=== PATIENT | female | born 1955 | race Caucasian/White ===

== ENCOUNTER 2017-05-27 10:55 | Emergency (ER) | payer OTHER ==
[~2017-05-27] VITALS: Ht 167.6 cm; Wt 131.5 kg
[~2017-05-27 10:55] MED LIST: BUSPAR15 MG PO; CYCLOBENZAPRINE10 MG PO; GLUCOPHAGE XL500 MG PO; LASIX20 MG PO; TIZANIDINE HCL4 M1 PO; ULTRAM50 MG PO; Z.0.ATIVAN1 MG PO; Z.0.CYMBALTA60 MG PO; Z.0.LISINOPRIL10 MG PO; Z.0.NEXIUM40 MG PO; Z.0.OMNICEF300 MG PO; Z.0.PRAVACHOL40 MG PO; [UNRECOGNIZED DRUG - OTHER] PO
[2017-05-27] MEDS ORDERED: ISOSORBIDE MONO30 MG PO (11:13)
[2017-05-27] MEDS ORDERED: PLAVIX75 MG PO (11:13)
[2017-05-27] MEDS ORDERED: HYDROCHLOROTHIA25 MG PO (11:13)
[2017-05-27] MEDS ORDERED: DIOVAN160 MG PO (11:13)
[2017-05-27] MEDS ORDERED: BUSPIRONE HCL5 MG PO (11:13)
[2017-05-27] MEDS ORDERED: CRESTOR10 MG PO (11:13)
[2017-05-27] MEDS ORDERED: METOPROLOL SUCC50 MG PO (11:13)
[2017-05-27] MEDS ORDERED: CYMBALTA30 MG PO (11:13)
[2017-05-27] MEDS ORDERED: ASPIR 8181 MG PO (11:13)
[2017-05-27] MEDS ORDERED: NEXIUM40 MG PO (11:13)
[2017-05-27 11:40] LABS: BASOPHILS % 0.7 % (0.0-1.0); EOSINOPHILS # (AUTO) 0.2 (0.0-0.4); EOSINOPHILS % 2.6 % (0.0-6.0); HEMATOCRIT 37.1 % (34.2-44.1); HEMOGLOBIN 11.9 g/dL (12.0-16.0); LYMPHOCYTES # (AUTO) 1.4 (1.0-3.2); LYMPHOCYTES % 24.9 % (18.0-39.1); MEAN CORPUSCULAR HEMOGLOBIN 28.1 pg (28-32); MEAN CORPUSCULAR HGB CONC 32.1 g/dL (31-35); MEAN CORPUSCULAR VOLUME 87.7 fL (81-99); MONOCYTES # (AUTO) 0.3 (0.2-0.8); MONOCYTES % 5.7 % (4.4-11.3); NEUTROPHILS # (AUTO) 3.8 (2.1-6.9); NEUTROPHILS % 65.8 % (38.7-80.0); PLATELET COUNT 274 x10e3/uL (140-360); RED BLOOD COUNT 4.23 x10e6/uL (3.6-5.1); RED CELL DISTRIBUTION WIDTH 13.6 % (11.7-14.4)
[2017-05-27 11:45] LABS: INR 1.06
[2017-05-27] MEDS ORDERED: ASPIRIN 81 MG CHEW TAB PO ONE (11:45)
[2017-05-27 11:46] LABS: PARTIAL THROMBOPLASTIN TIME 25.1 seconds (23.8-35.5)
[2017-05-27 11:55] LABS: ALANINE AMINOTRANSFERASE 22 IU/L (0-55); ALBUMIN 3.8 g/dL (3.5-5.0); ALBUMIN/GLOBULIN RATIO 1.2 (0.8-2.0); ALKALINE PHOSPHATASE 72 IU/L (40-150); ANION GAP 11.9 mmol/L (8-16); BLOOD UREA NITROGEN 13 mg/dL (7-26); BUN/CREATININE RATIO 18 (6-25); CALCIUM 9.6 mg/dL (8.4-10.2); CARBON DIOXIDE 26 mmol/L (22-29); CHLORIDE 103 mmol/L (98-107); CREATINE KINASE 70 IU/L (29-168); CREATININE, SERUM 0.73 mg/dL (0.57-1.11); EST GLOMERULAR FILTRATION RATE > 60 ML/MIN (60-); GLUCOSE 108 mg/dL (74-118); POTASSIUM 3.9 mmol/L (3.5-5.1); SODIUM 137 mmol/L (136-145)
--- NOTE | 2017-05-27 12:05 | Diagnostic Imaging Report ---
PROCEDURE: A single AP view of the chest obtained at 1151 hrs.. COMPARISON: CT chest 05/31/16 INDICATIONS: CHEST PAIN FINDINGS: Lines/tubes: None. EKG wires overlie the chest. Lungs: The lungs are well inflated and clear. The pulmonary vasculature is normal. Pleura: There is no pleural effusion or pneumothorax. Heart and mediastinum: The heart and the mediastinum are unremarkable. Bones: No focal osseous lesions.. IMPRESSION: No acute cardiopulmonary disease. Dictated by: Brady Hernandez M.D. on 05/27/2017 at 12:15 Electronically approved by: Brady Hernandez M.D. on 05/27/2017 at 12:15
[2017-05-27 13:03] LABS: BILIRUBIN,URINE NEGATIVE (NEGATIVE); CLARITY,URINE CLEAR (CLEAR); COLOR,URINE STRAW (YELLOW); KETONES,URINE NEGATIVE (NEGATIVE); LEUKOCYTE ESTERASE ,URINE NEGATIVE (NEGATIVE); NITRITE,URINE NEGATIVE (NEGATIVE); PROTEIN,URINE DIPSTICK NEGATIVE (NEGATIVE); URINE UROBILINOGEN 0.2 mg/dL (0.2 - 1)
[2017-05-27 13:28] LABS: EPITHELIAL CELLS,URINE FEW /LPF; RBC,URINE 0-5 /HPF (0-5)
[2017-05-27 14:26] VITALS: BP 114/60
== END 2017-05-27 14:47 | disposition home or self-care (01) ==
LOC: ER 10:55
DX: R07.89 Other chest pain (principal); I10 Essential (primary) hypertension; E11.9 Type 2 diabetes mellitus without complications; I25.10 Atherosclerotic heart disease of native coronary artery without angina pectoris; E78.5 Hyperlipidemia, unspecified; Z95.5 Presence of coronary angioplasty implant and graft
CPT/HCPCS: 36415; 71045; 80053; 81001; 82550; 82553; 83880; 84484; 85025; 85610; 85730; 87086; 87400; 93005; 99284

== ENCOUNTER → 2017-08-12 | Outpatient (CLI) | payer OTHER ==
[~2017-08-12] MED LIST changes: +ASPIR 8181 MG PO; +BUSPIRONE HCL5 MG PO; +CRESTOR10 MG PO; +CYMBALTA30 MG PO; +DIOVAN160 MG PO; +HYDROCHLOROTHIA25 MG PO; +ISOSORBIDE MONO30 MG PO; +LORAZEPAM INJ 2 MG/ML VIAL ONE; +METOPROLOL SUCC50 MG PO; +NEXIUM40 MG PO; +PLAVIX75 MG PO
== END ==
LOC: MRI 08:33
PROVIDERS: ATTEND Internal Medicine
DX: M51.36 Other intervertebral disc degeneration, lumbar region (principal)
CPT/HCPCS: J2060

== ENCOUNTER → 2018-02-28 | Outpatient (CLI) | payer OTHER ==
[~2018-02-28] MED LIST changes: +AMLODIPINE BES2.5 MG PO; +ASPIRIN325 MG PO; +BENICAR20 MG PO; +CYCLOBENZAPRINE5 MG PO; +DOXAZOSIN MESYLA2 MG PO; +FUROSEMIDE40 MG PO; +IOPAMIDOL 370 MG/ML 200 ML INFUS..BTL INJ ONE; -LORAZEPAM INJ 2 MG/ML VIAL ONE; +PRISTIQ ER50 MG PO; +SODIUM CHLORIDE 0.9% 50ML 50 ML ONE
[2018-02-28 19:20] LABS: BLOOD UREA NITROGEN 18 mg/dL (7-26); BUN/CREATININE RATIO 23 (6-25); CREATININE, SERUM 0.79 mg/dL (0.57-1.11); EST GLOMERULAR FILTRATION RATE > 60 ML/MIN (60-)
--- NOTE | 2018-02-28 20:13 | Diagnostic Imaging Report ---
EXAM: CT Chest WITH contrast 02/28/2018 6:31 PM INDICATION: Cough. Bronchitis. Pulmonary embolism. Shortness of breath. Hypertension. Chest pain. Diabetes. Kidney stone. COMPARISON: May 31, 2016 TECHNIQUE: Chest was scanned utilizing a multidetector helical scanner from the lung apex through the level of the adrenal glands without administration of IV contrast. Coronal and sagittal reformations were obtained. Pulmonary embolism protocol was performed. IV CONTRAST: 100 mL of Isovue-370 RADIATION DOSE: Total DLP: 639.66 mGy*cm Estimated effective dose: (DLP x 0.014 x size factor) mSv All CT scans are performed using radiation dose reduction techniques. Technical factors are evaluated and adjusted to ensure appropriate moderation of exposure. Automated dose management technology is applied to adjust the radiation dose to minimize exposure while achieving a diagnostic-quality image. COMPLICATIONS: None FINDINGS: LINES/ TUBES: None. LUNGS AND AIRWAYS: No pulmonary embolus identified to the segmental level. Low lung volumes with posterior indentation of the trachea suggesting expiration during the exam. No focal consolidations. Central airways are clear. PLEURA: The pleural spaces are clear. HEART AND MEDIASTINUM: The thyroid gland is normal. No mediastinal, hilar or axillary lymphadenopathy. The heart is normal in size. There is no pericardial effusion. Coronary artery stents. UPPER ABDOMEN: Mild left hydronephrosis versus parapelvic cysts. No asymmetric perinephric stranding. Small hiatal hernia. Otherwise, limited views of the upper abdomen are unremarkable. BONES: No destructive osseous lesions. Retrolisthesis of L1 on L2 with severe disc space narrowing. Additional scattered degenerative changes of the thoracic spine. SOFT TISSUES: Unremarkable. IMPRESSION: 1. No pulmonary emboli or acute thoracic abnormalities. 2. Left renal parapelvic cysts versus mild hydronephrosis. Signed by: Dr. Eamon Mendoza M.D. on 02/28/2018 8:10 PM
== END ==
LOC: CT 18:06
PROVIDERS: ATTEND Internal Medicine
DX: R07.9 Chest pain, unspecified (principal); R06.02 Shortness of breath
CPT/HCPCS: 36415; 71260; 82565; 84520; Q9967

== ENCOUNTER → 2018-04-17 | Day surgery (SDC) | payer BC, OTHER ==
[2018-04-16 16:33] LABS: BASOPHILS % 0.7 % (0.0-1.0); EOSINOPHILS # (AUTO) 0.2 (0.0-0.4); EOSINOPHILS % 2.6 % (0.0-6.0); HEMATOCRIT 34.1 % (34.2-44.1); HEMOGLOBIN 10.8 g/dL (12.0-16.0); LYMPHOCYTES # (AUTO) 1.6 (1.0-3.2); LYMPHOCYTES % 26.7 % (18.0-39.1); MEAN CORPUSCULAR HEMOGLOBIN 28.1 pg (28-32); MEAN CORPUSCULAR HGB CONC 31.7 g/dL (31-35); MEAN CORPUSCULAR VOLUME 88.6 fL (81-99); MONOCYTES # (AUTO) 0.5 (0.2-0.8); MONOCYTES % 7.7 % (4.4-11.3); NEUTROPHILS # (AUTO) 3.8 (2.1-6.9); NEUTROPHILS % 61.8 % (38.7-80.0); PLATELET COUNT 242 x10e3/uL (140-360); RED BLOOD COUNT 3.85 x10e6/uL (3.6-5.1); RED CELL DISTRIBUTION WIDTH 13.9 % (11.7-14.4)
[2018-04-16 16:48] LABS: ALANINE AMINOTRANSFERASE 16 IU/L (0-55); ALBUMIN 3.7 g/dL (3.5-5.0); ALBUMIN/GLOBULIN RATIO 1.2 (0.8-2.0); ALKALINE PHOSPHATASE 90 IU/L (40-150); ANION GAP 14.1 mmol/L (8-16); BLOOD UREA NITROGEN 14 mg/dL (7-26); BUN/CREATININE RATIO 16 (6-25); CALCIUM 9.9 mg/dL (8.4-10.2); CARBON DIOXIDE 27 mmol/L (22-29); CHLORIDE 105 mmol/L (98-107); CREATININE, SERUM 0.89 mg/dL (0.57-1.11); EST GLOMERULAR FILTRATION RATE > 60 ML/MIN (60-); GLUCOSE 83 mg/dL (74-118); POTASSIUM 4.1 mmol/L (3.5-5.1); SODIUM 142 mmol/L (136-145)
[2018-04-17] VITALS (11 sets, daily range): BP systolic 112–143; BP diastolic 55–85
[~2018-04-17] VITALS: Ht 167.6 cm; Wt 131.5 kg
[~2018-04-17] MED LIST changes: +FENTANYL CITRATE/PF 100MCG/2 ML INJ ONE; +FUROSEMIDE INJ 10 MG/ML 4 ML VIAL ONE; +HEPARIN SOD (PORCINE) 1000 UNIT/ML 30ML ONE; +HEPARIN SOD/SOD CHLORIDE 2,000 ML ONE; +LIDOCAINE HCL 1% LOCAL INJ 20 ML VIAL ONE; +MIDAZOLAM HCL 2 MG/2 ML VIAL ONE; +NITROGLYCERIN/D5W 200 MCG/ML 250 ML ONE; +SODIUM CHLORIDE 0.9% 1000ML 1,000 ML ONE; -SODIUM CHLORIDE 0.9% 50ML 50 ML ONE; +VERAPAMIL HCL 2.5 MG/ML 2 ML VIAL ONE
--- OUTSIDE RECORDS SUMMARY | 2018-04-17 06:07 | XMS REPORT ---
Author Author [facility] Address Unknown Phone Unavailable Care Team Providers Care Systems Development Manager Name Role Phone Shante CHAVEZ Unavailable Unavailable Samaria HILARIO Unavailable Unavailable Problems This patient has no known problems. Allergies, Adverse Reactions, Alerts This patient has no known allergies or adverse reactions. Medications This patient has no known medications. Results Test Description Test Time Test Comments Text Results Atomic Results Result Comments CT CHEST W 2018-02-28 19:59:00 [facility] [address] [address] Patient Name: MARISA VALENZUELA MR #: [id number] : 1955 Age/Sex: 63/F Req #: [id number] Adm Physician: Ordered by: DE JONAS MD Report #: [id number] Location: CT Room/Bed: Procedure: [id number] CT/CT CHEST W Exam Date: 02/28/18 Exam Time: 1929 REPORT STATUS: Signed EXAM: CT Chest WITH contrast 02/28/2018 6:31 PM INDICATION: Cough. Bronchitis. Pulmonary embolism. Shortness of breath. Hypertension. Chest pain. Diabetes. Kidney stone. COMPARISON: May 31, 2016 TECHNIQUE: Chest was scanned utilizing a multidetector helical scanner from the lung apex through the level of the adrenal glands without administration of IV contrast. Coronal and sagittal reformations were obtained. Pulmonary embolism protocol was performed. IV CONTRAST: 100 mL of Isovue-370 RADIATION DOSE: Total DLP: 639.66 mGy*cm Estimated effective dose: (DLP x 0.014 x size factor) mSv All CT scans are performed using radiation dose reduction techniques. Technical factors are evaluated and adjusted to ensure appropriate moderation of exposure. Automated dose management technology is applied to adjust the radiation dose to minimize exposure while achieving a diagnostic-quality image. COMPLICATIONS: None FINDINGS: LINES/ TUBES: None. LUNGS AND AIRWAYS: No pulmonary embolus identified to the segmental level. Low lung volumes with posterior indentation of the trachea suggesting expiration during the exam. No focal consolidations. Central airways are clear. PLEURA: The pleural spaces are clear. HEART AND MEDIASTINUM: The thyroid gland is normal. No mediastinal, hilar or axillary lymphadenopathy. The heart is normal in size. There is no pericardial effusion. Coronary artery stents. UPPER ABDOMEN: Mild left hydronephrosis versus parapelvic cysts. No asymmetric perinephric stranding. Small hiatal hernia. Otherwise, limited views of the upper abdomen are unremarkable. BONES: No destructive osseous lesions. Retrolisthesis of L1 on L2 with severe disc space narrowing. Additional scattered degenerative changes of the thoracic spine. SOFT TISSUES: Unremarkable. IMPRESSION: 1. No pulmonary emboli or acute thoracic abnormalities. 2. Left renal parapelvic cysts versus mild hydronephrosis. Signed by: Dr. Eamon Mendoza M.D. on 02/28/2018 8:10 PM Dictated By: EAMON MENDOZA MD, MD 09 Transcribed By: GENA on 02/28/182009 COPY TO: DE JONAS MD CHEST SINGLE (PORTABLE) [address] [address] Patient Name: MARISA VALENZUELA MR #: [id number] : 1955 Age/Sex: 62/F Req #: [id number] Adm Physician: Ordered by: JARAD HILARIO MD Report #: [id number] Location: ER Room/Bed: Procedure: [id number] DX/CHEST SINGLE (PORTABLE) Exam Date: 05/27/17 Exam Time: 1130 REPORT STATUS: Signed PROCEDURE: A single AP view of the chest obtained at 1151 hrs.. COMPARISON: CT chest 05/31/16 INDICATIONS: CHEST PAIN FINDINGS: Lines/tubes: None. EKG wires overlie the chest. Lungs: The lungs are well inflated and clear. The pulmonary vasculature is normal. Pleura: There is no pleural effusion or pneumothorax. Heart and mediastinum: The heart and the mediastinum are unremarkable. Bones: No focal osseous lesions.. IMPRESSION: No acute cardiopulmonary disease. Dictated by: Dipika Hernandez M.D. on 05/27/2017 at 12:15 Electronically approved by: Dipika Hernandez M.D. on 05/27/2017 at 12:15 Dictated By: DIPIKA HERNANDEZ MD 1215 Transcribed By: JANES on 05/27/17 1215 COPY TO: JARAD HILARIO MD
--- NOTE | 2018-04-17 09:25 | NUR ---
Received report from Miguelito CASON. Reviewed medications given, orders, and procedural events. Patient lying flat. Patient awake and alertx3. Respirations even and unlabored on room air. IV to left hand without signs and symptoms of infiltration. TR band to right wrist is without active bleeding at this time. Right IJ dressing is clean,dry and intact. No signs of acute distress at this time.
--- NOTE | 2018-04-17 09:38 | NUR ---
Dr. Ramirez at bedside to discuss procedural findings with and patient.
--- NOTE | 2018-04-17 10:08 | NUR ---
Removed 3ml of air from Right wrist TR band. No active bleeding to right wrist site at this time Palpable right radial pulse. No distress noted at this time.
--- NOTE | 2018-04-17 10:20 | NUR ---
Left message for Dr. Ramirez to call back to notify of urine output results.
--- NOTE | 2018-04-17 10:23 | NUR ---
Removed 3ml of air from right wrist TR band. No active bleeding to right wrist site at this time. Palpable right radial pulse. No distress noted. Patient tolerated well.
--- NOTE | 2018-04-17 10:35 | NUR ---
Dr. Ramirez called back and notified of approximate 750ml urine output. Dr. Ramirez verbalized understanding with no new orders at this time.
--- NOTE | 2018-04-17 10:38 | NUR ---
Removed 3ml of air from right wrist TR band. No active bleeding to right wrist site at this time. No distress noted. will monitor.
--- NOTE | 2018-04-17 10:53 | NUR ---
Removed 3ml of air from TR band. Right wrist without active bleeding at this time. No distress noted. Palpable right radial pulse.
--- NOTE | 2018-04-17 11:09 | NUR ---
Removed 2ml of air from right wrist TR band. Patient tolerated well. No signs of active bleeding to right wrist.
--- NOTE | 2018-04-17 11:12 | NUR ---
Dressing placed to right wrist as per protocol.
--- NOTE | 2018-04-17 11:15 | NUR ---
Reviewed discharge instructions with patient and family. Reviewed home medication reconciliation, activity restrictions, follow-up appointment, diet, signs and symptoms to look for: when to call the doctor and when to call 911. Patient and family verbalized understanding and had no questions at this time.
--- NOTE | 2018-04-17 11:38 | NUR ---
IV to left hand removed. Dressing placed per unit protocol. Patient discharged to private vehicle with as customer service driver. Dressing to right IJ clean,dry, and intact. Dressing to right hand clean,dry, and intact. Arm board placed to right wrist. Dressing to left hand clean,dry, and intact. No distress noted at time of discharge.
--- NOTE | 2018-04-17 15:19 | Operative Report ---
DATE OF PROCEDURE: April 17, 2018 CARDIAC CATHETERIZATION REPORT PROCEDURES 1. Selective coronary angiography x2. 2. Right heart catheterization. INDICATIONS 1. Shortness of breath. 2. Unstable angina. SEDATION 1. Midazolam 6 mg. 2. Fentanyl 150 mcg. INFORMED CONSENT: Consent was obtained and documented in the chart. PROCEDURE IN DETAIL: The patient was brought to the cardiac catheterization laboratory in a fasting state after written informed consent was obtained. Right neck, right wrist and bilateral groins were prepped and draped in the usual sterile fashion. Lidocaine 1% was used to achieve local anesthesia of the right neck. The right internal jugular vein was accessed under ultrasound guidance with a micropuncture needle. A 7-Austrian sheath was placed via modified Seldinger technique. The [place]-Amilcar catheter was inserted and advanced into the pulmonary wedge position. Hemodynamic measurements were performed in the pulmonary capillary wedge, pulmonary arterial, right ventricular, and right atrial positions. Thermodilution measurements were performed. The [place]-Amilcar catheter was removed, and attention was turned to the right radial artery. Next, 1% lidocaine was used to achieve local anesthesia. The right radial artery was accessed with a micropuncture needle. A 5-Austrian Glidesheath was inserted via modified Seldinger technique. A 5-Austrian TIG was inserted and advanced into the ascending aorta. The left main coronary artery was cannulated under fluoroscopic guidance. Selective coronary angiography was performed. The right coronary artery was then cannulated under fluoroscopic guidance. Selective coronary angiography was performed. The TIG was removed, followed by the 5-Austrian sheath. A TR band was placed. The 7-Austrian internal jugular sheath was removed, and manual compression was held until adequate hemostasis was achieved. The patient tolerated the procedure well without any immediate complications. FINDINGS Right heart catheterization 1. RA A wave 13, V wave 12, mean 11 mmHg. 2. RV 49/9, RV EDP 16 mmHg. 3. PA 41/18 mmHg and mean 29 mmHg. 4. Pulmonary capillary wedge A wave 18, V wave 18, mean 17 mmHg. 5. Thermodilution cardiac output 7.53 liters per minute. Thermodilution cardiac index 3.21 liters per minute per meter squared. Left heart catheterization 1. The left main coronary artery bifurcates into the left anterior descending and circumflex arteries. There was 50% stenosis in the proximal LAD prior to the takeoff of the 1st diagonal. The LAD wraps around the apex. 2. Patent stent was noted in the circumflex artery. No significant coronary artery disease was noted. 3. The right coronary artery gives rise to the PDA. There is 20% to 30% stenosis prior to the patent stent in the distal RCA. CONCLUSIONS 1. Mild pulmonary hypertension. 2. Elevated filling pressures. 3. Nonobstructive coronary artery disease. RECOMMENDATIONS: Medical management. Increase diuretics. Aggressive risk-factor modification. Job#: [id number] MTDD
== END | disposition home or self-care (01) ==
LOC: CATH LAB 06:04
PROVIDERS: ATTEND Internal Medicine
DX: I25.110 Atherosclerotic heart disease of native coronary artery with unstable angina pectoris (principal); I27.20 Pulmonary hypertension, unspecified; I10 Essential (primary) hypertension; R94.31 Abnormal electrocardiogram [ECG] [EKG]; I73.9 Peripheral vascular disease, unspecified; E78.5 Hyperlipidemia, unspecified; E11.9 Type 2 diabetes mellitus without complications; E66.01 Morbid (severe) obesity due to excess calories; Z01.812 Encounter for preprocedural laboratory examination; Z79.82 Long term (current) use of aspirin; Z79.02 Long term (current) use of antithrombotics/antiplatelets; Z79.84 Long term (current) use of oral hypoglycemic drugs; Z68.43 Body mass index [BMI] 50.0-59.9, adult; Z82.49 Family history of ischemic heart disease and other diseases of the circulatory system; Z83.3 Family history of diabetes mellitus; Z82.3 Family history of stroke
CPT/HCPCS: 36415; 80053; 85025; 93456; C1766; C1769; C1887; J1644; J1940; J2001; J2250; J7030; Q9967; 93460

== ENCOUNTER → 2018-05-29 | Outpatient (CLI) | payer BC, OTHER ==
[~2018-05-29] MED LIST changes: -FENTANYL CITRATE/PF 100MCG/2 ML INJ ONE; -FUROSEMIDE INJ 10 MG/ML 4 ML VIAL ONE; -HEPARIN SOD (PORCINE) 1000 UNIT/ML 30ML ONE; -HEPARIN SOD/SOD CHLORIDE 2,000 ML ONE; -IOPAMIDOL 370 MG/ML 200 ML INFUS..BTL INJ ONE; -LIDOCAINE HCL 1% LOCAL INJ 20 ML VIAL ONE; -MIDAZOLAM HCL 2 MG/2 ML VIAL ONE; -NITROGLYCERIN/D5W 200 MCG/ML 250 ML ONE; -SODIUM CHLORIDE 0.9% 1000ML 1,000 ML ONE; -VERAPAMIL HCL 2.5 MG/ML 2 ML VIAL ONE
--- NOTE | 2018-05-29 16:05 | Diagnostic Imaging Report ---
Examination: Single AP view of the chest. COMPARISON: CT chest PE protocol 02/28/2018 INDICATION: Dyspnea DISCUSSION: The lungs are well-inflated. No focal airspace consolidation, pleural effusion, or pneumothorax. Enlargement of the cardiac silhouette shown to represent prominent epicardial fat on comparison CT. Tortuous thoracic aorta with atherosclerotic calcification. No overt pulmonary edema. No acute osseous abnormality. IMPRESSION: No acute cardiopulmonary abnormality. Signed by: Dr. Wade Garcia M.D. on 05/29/2018 4:02 PM
== END ==
LOC: RAD 14:57
PROVIDERS: ATTEND Internal Medicine
DX: R06.00 Dyspnea, unspecified (principal)
CPT/HCPCS: 71046

== ENCOUNTER → 2018-06-19 | Outpatient (CLI) | payer BC, OTHER ==
[~2018-06-19] MED LIST changes: +IOPAMIDOL 370 MG/ML 200 ML INFUS..BTL INJ ONE; +SODIUM CHLORIDE 0.9% 50ML 50 ML ONE
[2018-06-19 19:05] LABS: BLOOD UREA NITROGEN 17 mg/dL (7-26); BUN/CREATININE RATIO 19 (6-25); EST GLOMERULAR FILTRATION RATE > 60 ML/MIN (60-)
--- NOTE | 2018-06-19 20:02 | Diagnostic Imaging Report ---
CT CHEST WITH CONTRAST HISTORY: SHORT OF BREATH COMPARISON: CT of the chest February 28, 2018. TECHNIQUE: CT scan of the chest WITH intravenous contrast, using PE protocol. The chest was scanned utilizing a multidetector helical scanner from the lung apex through the level of the adrenal glands. Thin section reconstructions were obtained with special concentration on the pulmonary arteries. Soft tissue attenuation partially limits sensitivity of the exam. Dense contrast within the right brachiocephalic vein and superior vena cava, results in beam hardening artifact which partially limits regional evaluation. IV CONTRAST: 100 cc of Isovue-370. PROTOCOL: PE RADIATION DOSE: Total DLP: 628.26 mGy*cm Dose modulation, iterative reconstruction, and/or weight based adjustment of the mA/kV was utilized to reduce the radiation dose to as low as reasonably achievable. COMPLICATIONS: None DISCUSSION: Lungs: The lungs are well inflated and clear. Vessels: No filling defects are identified within the pulmonary arteries to the segmental levels. Mild enlargement of the main pulmonary artery, 3.6 cm in diameter. Mild enlargement of the right pulmonary artery and borderline enlargement left pulmonary artery. Airways: The major airways are clear. Pleura: No pleural effusion or pneumothorax. Heart and mediastinum: Unremarkable Abdomen: Limited evaluation of the upper abdomen. Lymph nodes: No pathologically enlarged lymph node. Bones: Multifocal degenerative changes, most notably severe of the left glenohumeral joint. Soft tissues: Unremarkable IMPRESSION: 1. No evidence of a pulmonary embolus. 2. Increased size of the pulmonary arteries, which may reflect elevated pulmonary arterial pressures. Signed by: Dr. Gregor Steiner D.O., M.M.M. on 06/19/2018 7:58 PM
== END ==
LOC: CT 18:16
PROVIDERS: ATTEND Internal Medicine
DX: R06.02 Shortness of breath (principal)
CPT/HCPCS: 36415; 71260; 82565; 84520; Q9967

== ENCOUNTER 2018-10-20 18:36 | Observation (INO) | payer BC, OTHER ==
[~2018-10-20] VITALS: Ht 167.6 cm; Wt 139.3 kg
[~2018-10-20 18:36] MED LIST changes: -IOPAMIDOL 370 MG/ML 200 ML INFUS..BTL INJ ONE; -SODIUM CHLORIDE 0.9% 50ML 50 ML ONE
[2018-10-20] MEDS ORDERED: ASPIRIN 81 MG CHEW TAB PO ONE (19:15)
[2018-10-20 19:28] LABS: BASOPHILS # (AUTO) 0.1 (0.0-0.1); BASOPHILS % 0.5 % (0.0-1.0); EOSINOPHILS # (AUTO) 0.3 (0.0-0.4); EOSINOPHILS % 2.9 % (0.0-6.0); HEMATOCRIT 33.5 % (34.2-44.1); HEMOGLOBIN 11.2 g/dL (12.0-16.0); LYMPHOCYTES # (AUTO) 1.6 (1.0-3.2); LYMPHOCYTES % 17.1 % (18.0-39.1); MEAN CORPUSCULAR HEMOGLOBIN 30.4 pg (28-32); MEAN CORPUSCULAR HGB CONC 33.4 g/dL (31-35); MEAN CORPUSCULAR VOLUME 90.8 fL (81-99); MONOCYTES # (AUTO) 0.6 (0.2-0.8); MONOCYTES % 6.1 % (4.4-11.3); NEUTROPHILS % 72.8 % (38.7-80.0); PLATELET COUNT 324 x10e3/uL (140-360); RED BLOOD COUNT 3.69 x10e6/uL (3.6-5.1); RED CELL DISTRIBUTION WIDTH 13.2 % (11.7-14.4)
--- NOTE | 2018-10-20 19:39 | Diagnostic Imaging Report ---
EXAMINATION: CHEST SINGLE (PORTABLE) INDICATION: ^chest pain COMPARISON: Chest x-ray 05/27/2017 FINDINGS: AP view TUBES and LINES: None. LUNGS: Lungs are well inflated. There are bibasilar atelectasis. There is mild prominence of the central pulmonary vasculature, consistent with pulmonary venous congestion. PLEURA: No pleural effusion or pneumothorax. HEART AND MEDIASTINUM: The cardiomediastinal silhouette is unremarkable. There are atherosclerotic calcifications within the aorta. BONES AND SOFT TISSUES: No acute osseous lesion. Degenerative changes in the left shoulder. Soft tissues are unremarkable. UPPER ABDOMEN: No free air under the diaphragm. IMPRESSION: Mild central pulmonary venous congestion. Signed by: Dr. Avery Aguirre M.D. on 10/20/2018 7:36 PM
[2018-10-20] MEDS ORDERED: ACETAMINOPHEN 325 MG TAB PO ONE (19:45)
[2018-10-20 19:49] LABS: ALANINE AMINOTRANSFERASE 21 IU/L (0-55); ALBUMIN 4.1 g/dL (3.5-5.0); ALBUMIN/GLOBULIN RATIO 1.3 (0.8-2.0); ALKALINE PHOSPHATASE 84 IU/L (40-150); ANION GAP 15.9 mmol/L (8-16); BLOOD UREA NITROGEN 51 mg/dL (7-26); BUN/CREATININE RATIO 21 (6-25); CALCIUM 10.2 mg/dL (8.4-10.2); CARBON DIOXIDE 28 mmol/L (22-29); CHLORIDE 96 mmol/L (98-107); CREATINE KINASE 58 IU/L (29-168); CREATININE, SERUM 2.44 mg/dL (0.57-1.11); EST GLOMERULAR FILTRATION RATE 20 ML/MIN (60-); GLUCOSE 142 mg/dL (74-118); POTASSIUM 4.9 mmol/L (3.5-5.1); SODIUM 135 mmol/L (136-145)
[2018-10-20] MEDS ORDERED: RANEXA500 MG PO (20:36)
[2018-10-20] MEDS ORDERED: SPIRONOLACTONE25 MG PO (20:36)
[2018-10-20] MEDS ORDERED: LEVOCETIRIZINE D5 MG PO (20:36)
[2018-10-20] MEDS ORDERED: LORAZEPAM1 MG PO (20:36)
[2018-10-20] MEDS ORDERED: BUMETANIDE1 MG PO (20:37)
[2018-10-20] MEDS ORDERED: ASPIRIN EC81 MG PO (20:38)
[2018-10-20] MEDS ORDERED: CYMBALTA30 MG PO (20:38)
[2018-10-20] MEDS ORDERED: SODIUM CHLORIDE 0.9% 1000ML 1,000 ML ONE (21:28)
[2018-10-20] MEDS ORDERED: SODIUM CHLORIDE 0.9% 1000ML 1,000 ML IV ONE (21:30)
[2018-10-20] MEDS ORDERED: DEXTROSE 50% SYRINGE 50 ML IV PRN (21:30)
[2018-10-20] MEDS ORDERED: ONDANSETRON HCL INJ 2MG/ML 2ML 2 MG/ML VIAL IV PRN (21:30)
[2018-10-20] MEDS ORDERED: TRAMADOL HCL 50 MG TAB PO PRN (21:30)
[2018-10-20] MEDS ORDERED: LORAZEPAM 1 MG TAB PO PRN (21:30)
[2018-10-20] MEDS ORDERED: NON-FORMULARY MEDICATION (Cyclobenzaprine Hcl (Flexeril) 10 MG) PO PRN (21:30)
[2018-10-20] MEDS ORDERED: CYCLOBENZAPRINE HCL 10 MG TAB PO PRN (22:00)
[2018-10-20 22:25] VITALS: BP 103/51
--- NOTE | 2018-10-20 22:25 | NUR ---
TELE BOX #[id number] ATTACHED TO PATIENT
[2018-10-20 22:30] VITALS: BP 101/54
[2018-10-21] VITALS (10 sets, daily range): BP systolic 83–125; BP diastolic 47–63
[2018-10-21 03:52] LABS: BASOPHILS % 0.5 % (0.0-1.0); EOSINOPHILS # (AUTO) 0.3 (0.0-0.4); EOSINOPHILS % 3.9 % (0.0-6.0); HEMATOCRIT 30.6 % (34.2-44.1); HEMOGLOBIN 10.2 g/dL (12.0-16.0); LYMPHOCYTES # (AUTO) 2.2 (1.0-3.2); LYMPHOCYTES % 28.8 % (18.0-39.1); MEAN CORPUSCULAR HEMOGLOBIN 30.4 pg (28-32); MEAN CORPUSCULAR HGB CONC 33.3 g/dL (31-35); MEAN CORPUSCULAR VOLUME 91.1 fL (81-99); MONOCYTES # (AUTO) 0.5 (0.2-0.8); MONOCYTES % 6.3 % (4.4-11.3); NEUTROPHILS # (AUTO) 4.6 (2.1-6.9); NEUTROPHILS % 59.9 % (38.7-80.0); PLATELET COUNT 287 x10e3/uL (140-360); RED BLOOD COUNT 3.36 x10e6/uL (3.6-5.1); RED CELL DISTRIBUTION WIDTH 13.2 % (11.7-14.4)
[2018-10-21 04:12] LABS: ALBUMIN 3.6 g/dL (3.5-5.0); ALBUMIN/GLOBULIN RATIO 1.2 (0.8-2.0); ANION GAP 14.8 mmol/L (8-16); CALCIUM 9.7 mg/dL (8.4-10.2); CHOL/HDL RATIO 3.6 (3.0-3.6); CREATININE, SERUM 2.36 mg/dL (0.57-1.11); POTASSIUM 4.8 mmol/L (3.5-5.1)
[2018-10-21 04:17] LABS: CREATINE KINASE 53 IU/L (29-168)
--- NOTE | 2018-10-21 07:05 | NUR ---
RECEIVED PATIENT AWAKE RESTING IN BED NO SIGNS OF DISTRESS. BED LOW, WHEELS LOCKED, SIDE RAILS X2. CALL LIGHT IN REACH. WILL CONTINUE TO MONITOR PATIENT. FAMILY AT BEDSIDE.
[2018-10-21] MEDS: INSULIN REGULAR, HUMAN 100 UNIT/1 ML 3ML VIAL SQ SCH ×4 (07:30→21:00)
[2018-10-21] MEDS: METOPROLOL SUCCINATE 50 MG TAB XL PO SCH (08:10)
[2018-10-21] MEDS: BUMETANIDE 1 MG TAB PO SCH ×2 (08:12→15:47)
[2018-10-21] MEDS: PANTOPRAZOLE SOD 40 MG TABEC PO SCH (08:33)
[2018-10-21] MEDS: ASPIRIN 81 MG ENTERIC COATED PO SCH (08:33)
[2018-10-21] MEDS: DULOXETINE HCL 30 MG DELAYED RELEASE PO SCH (08:33)
[2018-10-21] MEDS: LORATADINE 10 MG TAB PO SCH (08:33)
[2018-10-21] MEDS: CLOPIDOGREL BISULFATE 75 MG TAB PO SCH (08:33)
[2018-10-21] MEDS: BUSPIRONE HCL 5 MG TAB PO SCH ×3 (08:33→21:27)
[2018-10-21] MEDS: RANOLAZINE 500 MG TABSR PO SCH (08:34)
[2018-10-21] MEDS ORDERED: NON-FORMULARY MEDICATION (Levocetirizine Dihydrochloride 5 MG) PO SCH (09:00)
[2018-10-21] MEDS ORDERED: LORAZEPAM 1 MG TAB PO SCH (09:00)
[2018-10-21] MEDS ORDERED: SPIRONOLACTONE 25 MG TAB PO SCH (09:00)
[2018-10-21] MEDS ORDERED: OLMESARTAN 20 MG TAB PO SCH (09:00)
[2018-10-21] MEDS: SODIUM CHLORIDE 0.9% 1000ML 1,000 ML IV SCH (09:46)
--- NOTE | 2018-10-21 10:35 | History and Physical ---
CHIEF COMPLAINT: Chest pain. HISTORY OF PRESENT ILLNESS: This is a 63-year-old white woman, who presents to [facility] Emergency Room with a 1-day history of worsening chest discomfort and lightheadedness, particularly when she stands up. The patient states for the past two weeks, she has not felt well. The patient states that her orthopnea and dyspnea on exertion has only become more pronounced over the last two weeks. She denies any weight gain though. In July 2018, the patient underwent an echocardiogram, which revealed a preserved left ventricular ejection fraction, but it did reveal findings consistent with worsening diastolic heart failure. Also, on this admission, the patient is found to have BUN and creatinine of 51 and 2.44 respectively. On October 10, 2018, the patient's creatinine was 1.96. Apparently in June of 2018, the patient was found to have a BUN and creatinine of 17 and 0.9 respectively. The patient is on Bumex, spironolactone, Olmesartan, and metformin at home. In the emergency room, the patient underwent a chest x-ray, which revealed a mild central pulmonary venous congestion, but no overt heart failure was appreciated. No obvious cardiomegaly was appreciated either. The patient had a 12-lead EKG done in emergency room, which was unremarkable, it did not reveal any acute ischemic changes. The patient's first two troponin I enzymes are less than 0.001. In the emergency room, the patient's B-type natriuretic peptide level was less than 10. The patient will be admitted for further evaluation and treatment. REVIEW OF SYSTEMS: GENERAL: Weight has been stable, but she has felt very weak and tired over the last two weeks. No fever or chills. HEENT: No headaches. No vision changes. CARDIOVASCULAR/RESPIRATORY: Chest pain for one day, worsening shortness of breath, particularly with exertion over the last two weeks, worsening orthopnea over the last two weeks. GI: No nausea, vomiting, or constipation. : No UTI or overactive bladder symptoms. NEUROMUSCULAR: No limb weakness or numbness. PAST MEDICAL HISTORY: 1. Coronary artery disease (RCA and OM stent placement in March 2016). 2. Chronic diastolic congestive heart failure. 3. Extreme obesity, BMI 49. 4. Obstructive sleep apnea. 5. Chronic bronchitis. 6. History of secondhand tobacco exposure. 7. Type 2 diabetes mellitus. 8. Hypertensive heart disease. 9. Major depressive disorder. 10. Chronic pain syndrome. 11. Lumbar disk disease. 12. Cervical disk disease. 13. GERD. 14. Bilateral knee degenerative joint disease. 15. Hyperlipidemia. ALLERGIES: LEVAQUIN (CAUSES A RASH). FLU VACCINE. FAMILY HISTORY: Grandmother; diabetes mellitus. Both parents had coronary artery disease. SOCIAL HISTORY: This woman is , lives with . The patient has no history of tobacco use, but was exposed to secondhand tobacco smoke for many years. Drinks alcohol rarely in the form of red wine. PAST SURGICAL HISTORY: 1. Coronary stent placement in OM and RCA in March 2016. 2. Lumbar epidural steroid injections multiple times. 3. Cervical spine epidural steroid injections multiple times. 4. Lumbar spine surgery in 1999. 5. History of left heart catheterization on multiple occasions. HOME MEDICATIONS: 1. Aspirin 81 mg daily. 2. Bumex 2 mg b.i.d. 3. BuSpar 15 mg t.i.d. 4. Clopidogrel 75 mg daily. 5. Flexeril 10 mg t.i.d. p.r.n. spasms. 6. Duloxetine 60 mg daily. 7. Nexium 40 mg daily. 8. Xyzal 5 mg daily. 9. Lorazepam 1 mg b.i.d. p.r.n. anxiety. 10. Metformin 500 mg b.i.d. 11. Metoprolol succinate 200 mg daily. 12. Olmesartan 40 mg daily. 13. Ranexa 500 mg daily. 14. Rosuvastatin 40 mg daily. 15. Spironolactone 25 mg daily. 16. Tramadol 25 mg every 4 hours p.r.n. pain. PHYSICAL EXAMINATION: GENERAL: She is awake, alert, fluent. She is mildly anxious, slightly emotional. Her is at bedside. VITAL SIGNS: Height 5 feet 6 inches, weight is 307 pounds, BMI is 49, blood pressure currently is 125/56, but apparently in emergency room it got as low as 83/51, pulse currently is 62, respiratory rate is 18, temperature 96.3, oxygen saturation is 98% on 2 L oxygen. INTEGUMENT: Skin is warm and dry. No pallor, jaundice, or diaphoresis. HEENT: Anicteric sclerae. Moist mucous membranes. NECK: Supple. Difficult to assess for jugular venous distention because of the patient's body habitus. CARDIOVASCULAR: Distant heart sounds. Regular rate and rhythm. Faint systolic ejection murmur. LUNGS: There are no rales, rhonchi, or wheezes. Seems to have diminished breath sounds at the bases though. ABDOMEN: Extremely obese. Difficult to assess for any masses or organomegaly because of body habitus. EXTREMITIES: No obvious edema in the lower legs. NEUROLOGIC: Intact. No focal deficits. DIAGNOSES: 1. Acute on chronic diastolic congestive heart failure. 2. Acute renal insufficiency, likely prerenal acute tubular necrosis. 3. Angina. 4. Coronary artery disease (coronary stent placement, RCA and OM in 2016). 5. Extreme obesity, BMI of 49. 6. Obstructive sleep apnea. PLAN: 1. Hold diuretics, namely Bumex and spironolactone as well as angiotensin receptor blockers, namely olmesartan and metformin due to the patient's acute renal insufficiency. 2. Gentle intravenous fluids. 3. Order renal ultrasound. 4. Consult Cardiology. 5. I agree with ruling out myocardial infarction. I spent 50 minutes in the care of this patient. MD SOLITARIO Lui/ALETHA /[id number] MTDAnais
--- NOTE | 2018-10-21 11:00 | NUR ---
SPOKE WITH MD PATEL. SAID TO NOT GIVE OLMESARTAN, BUMEX, AND ALDACTONE.
[2018-10-21 12:53] LABS: CREATINE KINASE 50 IU/L (29-168)
--- NOTE | 2018-10-21 14:28 | Consultation ---
DATE OF CONSULTATION: 10/21/2018 Cardiology Consultation REQUESTING PHYSICIAN: Dr. Ammon Carranza. REASON FOR CONSULTATION: Chest pain. HISTORY OF PRESENT ILLNESS: This is a 63-year-old woman, who has history of coronary artery disease status post OM and RCA PCI in 2016, hypertension, hyperlipidemia, diabetes mellitus, morbid obesity, obstructive sleep apnea on CPAP, and hypertensive heart disease, who presented with complaints of chest pain and lightheadedness. The patient reports that she has been coughing for the last month. Approximately two weeks prior to admission, she began noticing lightheadedness when she stood as well as when she first lied down. Her indicates she has been more lethargic than her baseline and has not been eating well for the last two weeks. In addition, the patient reports her usual chest pain has recurred during this period of time. She was seen by one of my partners in the office one week prior and her amlodipine was discontinued. She stated this improved her symptoms, but then she felt worse yesterday and therefore she presented to the ER for further evaluation. She does report orthopnea and PND, but these are unchanged from prior. REVIEW OF SYSTEMS: Negative except as per HPI. PAST MEDICAL HISTORY: 1. Coronary artery disease status post RCA and OM PCI. 2. Diabetes mellitus. 3. Hypertension. 4. Hyperlipidemia. 5. Chronic diastolic heart failure. 6. Morbid obesity. PAST SURGICAL HISTORY: 1. Lumbar epidural steroid injections. 2. Cervical spine epidural steroid injections. 3. Lumbar spine surgery. ALLERGIES: PLEASE SEE EMR. MEDICATIONS: Please see medication list. SOCIAL HISTORY: No tobacco. Rare alcohol. FAMILY HISTORY: Pertinent for parents with coronary artery disease. PHYSICAL EXAMINATION: VITAL SIGNS: Temperature 96.3 degrees, pulse 60, respiratory rate 18, blood pressure 125/56, and oxygen saturation 98% on 3 L nasal cannula. GENERAL: Obese woman, in no acute distress, well developed, well nourished. HEENT: Normocephalic, atraumatic. Pupils equal. No scleral icterus. NECK: Supple. No thyromegaly or cervical lymphadenopathy. No carotid bruits. LUNGS: Clear to auscultation bilaterally. No wheeze or crackles. CARDIOVASCULAR: Normal rate, regular rhythm. No murmur. Normal S1, S2. ABDOMEN: Soft, nontender. EXTREMITIES: No edema. NEUROLOGIC: Nonfocal exam. LABORATORY DATA: WBC 7.74, hemoglobin 10.2, hematocrit 30.6, platelets 287. Sodium 135, potassium 4.8, chloride 96, CO2 of 29, BUN 52, and creatinine 2.36. Troponin less than 0.01. BNP less than 10. LDL 76. IMAGING DATA: Chest x-ray, mild central pulmonary venous congestion. EKG; normal sinus rhythm, normal ECG. IMPRESSION: 1. Acute kidney injury. 2. Chest pain. 3. Chronic diastolic heart failure. 4. Coronary artery disease with history of RCA and OM PCI in 2016. 5. Morbid obesity. 6. Obstructive sleep apnea. 7. Hypertension. 8. Hyperlipidemia. 9. Diabetes mellitus. RECOMMENDATIONS: Agree with holding diuretics, ARB and metformin at this time. Gentle IV fluids. Monitor respiratory status closely. The patient is ruled out for myocardial infarction. No further cardiac evaluation is indicated at this time. Continue home cardiac medications including aspirin and Plavix. Continue metoprolol and ranolazine. Plan to refer the patient for cardiac rehab as an outpatient. Titrate antianginal therapies as blood pressure permits. Thank you for this consult. We will continue to follow. Mitzy Ramirez MD ABS/MODL /[id number]
--- NOTE | 2018-10-21 15:10 | NUR ---
Visit made by the Spiritual Care Department Pastoral Visitor, Iliana Willams. PV provided pastoral presence, prayer, hospitality, and supportive listening. Pastoral Visitor informed pt/family of the scope of [employer] Services and availability. VITO LANGE Casing Soaker Spiritual Care Department O: [phone] Pager: [phone] ([phone] number calling from)
--- NOTE | 2018-10-21 15:23 | Diagnostic Imaging Report ---
EXAM: Renal Ultrasound INDICATION: ^acute renal insufficiency ^Y COMPARISON: None TECHNIQUE: Transverse and longitudinal images of the kidneys and bladder were obtained. FINDINGS: Right Kidney: Length: 9.4 cm Appearance: Normal echogenicity. Collecting system: No hydronephrosis Stones: No renal calculi. Cyst/Mass: None Left Kidney: Length: 11.6 cm Appearance: Normal echogenicity. Collecting system: No hydronephrosis Stones: Nonspecific echogenic focus in the lateral midpole left kidney measuring 0.3 x 0.3 x 0.7 cm without posterior acoustic shadowing. Cyst/Mass: None Bladder: No wall thickening or mass. Ureteral jets not visualized. IMPRESSION: Echogenic focus in the lateral midpole left kidney measures 0.3 x 0.3 x 0.7 cm without posterior acoustic shadowing and is nonspecific but could possibly represent a nonobstructive calculus. No hydronephrosis. Normal-appearing bladder. Signed by: Hay Gonzalez MD on 10/21/2018 3:19 PM
--- NOTE | 2018-10-21 15:26 | NUR ---
DISCUSSED IN BARRIER ROUNDS, 2 CARD MARKERS WERE NEGATIVE, GETTING RENAL ULTRASOUND TODAY
[2018-10-21] MEDS: LORAZEPAM 1 MG TAB PO SCH (17:13)
[2018-10-21] MEDS: SIMVASTATIN 40 MG TAB PO SCH (21:27)
[2018-10-22] VITALS (8 sets, daily range): BP systolic 103–152; BP diastolic 47–63
[2018-10-22] MEDS: SODIUM CHLORIDE 0.9% 1000ML 1,000 ML IV SCH ×2 (05:26→19:37)
[2018-10-22 06:08] LABS: BASOPHILS % 0.4 % (0.0-1.0); EOSINOPHILS # (AUTO) 0.3 (0.0-0.4); EOSINOPHILS % 4.8 % (0.0-6.0); HEMATOCRIT 30.1 % (34.2-44.1); LYMPHOCYTES # (AUTO) 1.8 (1.0-3.2); MEAN CORPUSCULAR HGB CONC 33.2 g/dL (31-35); MEAN CORPUSCULAR VOLUME 93.2 fL (81-99); MONOCYTES # (AUTO) 0.5 (0.2-0.8); MONOCYTES % 7.3 % (4.4-11.3); NEUTROPHILS # (AUTO) 4.1 (2.1-6.9); NEUTROPHILS % 60.8 % (38.7-80.0); PLATELET COUNT 242 x10e3/uL (140-360); RED BLOOD COUNT 3.23 x10e6/uL (3.6-5.1); RED CELL DISTRIBUTION WIDTH 13.2 % (11.7-14.4)
[2018-10-22 06:36] LABS: ALBUMIN 3.6 g/dL (3.5-5.0); ALBUMIN/GLOBULIN RATIO 1.3 (0.8-2.0); ANION GAP 11.2 mmol/L (8-16); CALCIUM 9.9 mg/dL (8.4-10.2); CREATININE, SERUM 1.63 mg/dL (0.57-1.11); POTASSIUM 5.2 mmol/L (3.5-5.1)
[2018-10-22] MEDS: INSULIN REGULAR, HUMAN 100 UNIT/1 ML 3ML VIAL SQ SCH ×4 (07:30→19:46)
[2018-10-22] MEDS: CLOPIDOGREL BISULFATE 75 MG TAB PO SCH (09:59)
[2018-10-22] MEDS: DULOXETINE HCL 30 MG DELAYED RELEASE PO SCH (09:59)
[2018-10-22] MEDS: BUSPIRONE HCL 5 MG TAB PO SCH ×3 (09:59→21:01)
[2018-10-22] MEDS: ASPIRIN 81 MG ENTERIC COATED PO SCH (09:59)
[2018-10-22] MEDS: RANOLAZINE 500 MG TABSR PO SCH (09:59)
[2018-10-22] MEDS: PANTOPRAZOLE SOD 40 MG TABEC PO SCH (09:59)
[2018-10-22] MEDS: LORATADINE 10 MG TAB PO SCH (09:59)
[2018-10-22] MEDS: LORAZEPAM 1 MG TAB PO SCH ×2 (09:59→16:14)
[2018-10-22] MEDS: METOPROLOL SUCCINATE 50 MG TAB XL PO SCH (10:00)
--- NOTE | 2018-10-22 19:30 | NUR ---
Received bedside report from day shift RN. The patient is sitting on the edge of the bed, not in distress. Call light within reach, bed height low, wheels lock and side rails up x2. RN instructed the patient to urinate in the blue cup and call for specimen pickup. Verbalized understanding. Patient is eager to go home tomorrow once lab is obtained for clearance. at bedside.
--- NOTE | 2018-10-22 20:20 | Progress Note ---
DATE: 10/22/2018 Cardiology Progress Note SUBJECTIVE: The patient denies chest pain or shortness of breath. PHYSICAL EXAMINATION: VITAL SIGNS: Temperature 96.1 degrees, pulse 63, respiratory rate 19, blood pressure 124/55, oxygen saturation 100% on 3 L nasal cannula. GENERAL: Awake, alert, no acute distress. LUNGS: Clear to auscultation bilaterally. No wheezes or crackles. CARDIOVASCULAR: Normal rate, regular rhythm. No murmur. Normal S1, S2. ABDOMEN: Soft, nontender. EXTREMITIES: No edema. CARDIAC MEDICATIONS: Metoprolol succinate 200 mg p.o. daily, ranolazine 500 mg p.o. daily, Plavix 75 mg p.o. daily, aspirin 81 mg p.o. daily, simvastatin 40 mg p.o. at bedtime. LABORATORY DATA: WBC 6.82, hemoglobin 10, hematocrit 30.1, platelets 242. Sodium 140, potassium 5.2, chloride 106, CO2 of 28, BUN 34, creatinine 1.63. TELEMETRY: Normal sinus rhythm. IMPRESSION: 1. Acute kidney injury. 2. Chronic diastolic heart failure. 3. Chest pain. 4. Coronary artery disease with history of RCA and OM PCI in 2016. 5. Morbid obesity. 6. Obstructive sleep apnea. 7. Hypertension. 8. Hyperlipidemia. 9. Diabetes mellitus. RECOMMENDATIONS: Hold diuretics, ARB and metformin at this time. Continue IV fluids. Monitor volume status closely. Continue current cardiac medications including dual anti-platelet therapy. Continue metoprolol and ranolazine. The patient will need referral to cardiac rehab as an outpatient. We will attempt to further titrate ranolazine if blood pressure permits. Thank you for this consult. We will continue to follow. Mitzy Ramirez MD ABS/MODL /[id number]
[2018-10-22] MEDS: SIMVASTATIN 40 MG TAB PO SCH (21:00)
--- NOTE | 2018-10-22 23:41 | Consultation ---
DATE OF CONSULTATION: 10/22/2018 Renal Consult REASON FOR CONSULT: Increased BUN and creatinine. HISTORY OF PRESENT ILLNESS: This 63-year-old female, who came in after not feeling well for the last week. The patient has been very weak, unable to move, unable to get out of the bed and unable to move in her house. She started having orthopnea and dyspnea upon exertion, which was pronounced two weeks ago. She was given more diuretics, so she has been on spironolactone, olmesartan, and Bumex, but the patient became much weaker and was found to have increased creatinine. The patient also was getting metformin. PAST MEDICAL HISTORY: 1. Include coronary artery disease, RCA, and OM stent placement. 2. Morbid obesity. 3. Chronic diastolic congestive heart failure. 4. Obstructive sleep apnea. 5. Chronic bronchitis. 6. Lumbar and cervical disk disease. 7. Major depression. 8. Hypertension as well as type 2 diabetes mellitus. 9. Bilateral DJD. 10. Hyperlipidemia. ALLERGIES: LEVAQUIN AND FLU VACCINE. FAMILY HISTORY: Mother with diabetes; both parents with CAD. SOCIAL HISTORY: with her . No smoking. No alcohol. PAST SURGICAL HISTORY: Include: 1. Left heart catheterization. 2. Lumbar spine surgery. 3. Cervical spine epidural and lumbar epidural steroid injection. 4. Coronary artery stent placement. HOME MEDICATIONS: Reviewed. REVIEW OF SYSTEMS: Currently feeling little bit better, much more improved as far as movement. She is starting to move in the room, but she is not short of breath. She remains weak. She denies any nausea, vomiting, constipation, or diarrhea. Denies any shortness of breath. Denies any blood in the stool or blood in the urine. Denies any sensory loss or motor loss. Denies any edema. Denies any depression. Denies any skin changes. Denies any visual impairment, so all pertinent review of system are reviewed, currently negative. CURRENT MEDICATIONS: Include metoprolol, lorazepam, Claritin, Ranexa, Protonix, Cymbalta, Plavix, BuSpar, aspirin, simvastatin, insulin, Flexeril, and tramadol. LABORATORY DATA: Sodium 140, potassium 5.2, chloride 106, creatinine 1.63, down from 2.44 and 2.36. In June, her creatinine was 0.9. White count 6.8, hemoglobin 10. Renal ultrasound, no hydronephrosis. Normal appearing bladder. ASSESSMENT AND PLAN: Acute kidney failure, most likely secondary to volume depletion secondary to diuretic, olmesartan, and metformin. Currently, the patient is improving. We will probably need to readjust her diuretics. The patient has diastolic dysfunction, which is difficult to treat and the patient usually go quickly into cardiorenal as I did discuss that with the patient. The patient is very compliant and she will be following up on her volume status, weight, and use of the diuretics. Currently, receiving IV fluids, meds on hold, so we will titrate slowly and we will monitor improvement. Kostas Sánchez MD MA/ALETHA /[id number]
[2018-10-23] VITALS: BP 93/50
[2018-10-23 04:00] VITALS: BP 98/50
[2018-10-23] MEDS: SODIUM CHLORIDE 0.9% 1000ML 1,000 ML IV SCH (04:29)
[2018-10-23 05:36] LABS: CREATININE,URINE RANDOM 37.42 mg/dL (47-110); SODIUM,URINE 50 mmol/L; TOTAL PROTEIN, URINE < 6.8 mg/dL (1-14)
[2018-10-23 06:47] LABS: BASOPHILS % 0.7 % (0.0-1.0); EOSINOPHILS # (AUTO) 0.3 (0.0-0.4); EOSINOPHILS % 5.2 % (0.0-6.0); HEMATOCRIT 30.6 % (34.2-44.1); HEMOGLOBIN 9.7 g/dL (12.0-16.0); LYMPHOCYTES % 32.9 % (18.0-39.1); MEAN CORPUSCULAR HEMOGLOBIN 29.5 pg (28-32); MEAN CORPUSCULAR HGB CONC 31.7 g/dL (31-35); MONOCYTES # (AUTO) 0.4 (0.2-0.8); NEUTROPHILS # (AUTO) 3.3 (2.1-6.9); NEUTROPHILS % 53.5 % (38.7-80.0); PLATELET COUNT 280 x10e3/uL (140-360); RED BLOOD COUNT 3.29 x10e6/uL (3.6-5.1); RED CELL DISTRIBUTION WIDTH 13.2 % (11.7-14.4)
[2018-10-23 06:59] LABS: ANION GAP 13.5 mmol/L (8-16); CREATININE, SERUM 1.38 mg/dL (0.57-1.11); POTASSIUM 4.5 mmol/L (3.5-5.1)
--- NOTE | 2018-10-23 08:34 | NUR ---
CM SPOKE TO BEDSIDE NURSE YOAV WARREN REGARDING PATIENT PLAN OF CARE AND DISCHARGE PLAN. PATIENT BUN/ CREAT/ GFR IMPROVED. SHE SPOKE WITH DR. PATEL AND WAS GIVEN DISCHARGE ORDERS. PATIENT DISCHARGING HOME WITH NO NEEDS.
[2018-10-23 09:11] VITALS: BP 117/60
--- NOTE | 2018-10-23 10:15 | Discharge Summary ---
ADMIT DIAGNOSES: 1. Acute on chronic diastolic congestive heart failure. 2. Acute renal failure secondary to acute tubular necrosis. 3. Extreme obesity, BMI of 49. 4. Type 2 diabetes mellitus. 5. Atypical angina. DISCHARGE DIAGNOSES: 1. Acute renal insufficiency secondary to acute tubular necrosis, resolving. 2. Coronary artery disease. 3. Chronic diastolic congestive heart failure. 4. Extreme obesity, BMI of 49. 5. Obstructive sleep apnea. 6. Angina, resolved. HOSPITAL COURSE: This is a 63-year-old white woman, who was initially admitted to [facility] Emergency Room with a diagnosis of acute renal insufficiency. During this hospitalization, it was concluded that her renal failure most likely was secondary to volume depletion secondary to diuretics namely Bumex and spironolactone. It was also felt that her acute renal insufficiency was exacerbated by underlying olmesartan and metformin. During this hospitalization, the patient underwent echocardiogram that revealed a preserved left ventricular ejection fraction of 55%, but did reveal findings consistent with diastolic dysfunction. She was seen by her education reporter during this hospital stay namely Dr. Ramirez. The patient was also seen by her baked goods stock clerk during this hospital stay namely Dr. Sánchez. During this hospitalization, the patient's renal function did improve with intravenous fluids. On admission, the patient's BUN and creatinine was 51 and 2.44 respectively and on day of discharge, the patient's BUN and creatinine was 27 and 1.39 respectively. During this hospital stay, olmesartan, metformin, Bumex, and spironolactone were held. CONDITION ON DISCHARGE: Stable. DISCHARGE MEDICATIONS: 1. BuSpar 15 mg t.i.d. 2. Simvastatin 40 mg at bedtime. 3. Lorazepam 1 mg b.i.d. p.r.n. anxiety. 4. Metoprolol succinate 200 mg daily. 5. Loratadine 10 mg daily. 6. Ranexa 500 mg daily. 7. Pantoprazole 40 mg daily. 8. Duloxetine 60 mg daily. 9. Clopidogrel 75 mg daily. 10. Aspirin 81 mg daily. 11. Cyclobenzaprine 10 mg daily p.r.n. muscle spasms. Once again, the patient was instructed to stop spironolactone, olmesartan, metformin, and bumetanide in the forme of Bumex until further notice. FOLLOWUP INSTRUCTIONS: The patient instructed to follow up with her attending, myself, Dr. Ammon Carranza next week. MD SOLITARIO Lui/ALETHA /[id number] cc: MD Scar Duenas MD
--- NOTE | 2018-10-23 14:11 | Progress Note ---
DATE: 10/23/2018 Cardiology progress note SUBJECTIVE: The patient denies chest pain or shortness of breath. OBJECTIVE: VITAL SIGNS: Temperature is 97.3 degrees, pulse 85, respiratory rate 19, blood pressure 117/60, and oxygen saturation 100% on 3 L of nasal cannula. GENERAL: Awake and alert in no acute distress. LUNGS: Clear to auscultation bilaterally. No wheezes or crackles. CARDIOVASCULAR: Normal rate regular rhythm. No murmur. Normal S1, S2. ABDOMEN: Soft and nontender. EXTREMITIES: No edema. CARDIAC MEDICATIONS: 1. Simvastatin 40 mg p.o. at bedtime. 2. Metoprolol succinate 200 mg p.o. daily. 3. Ranolazine 500 mg p.o. daily. 4. Plavix 75 mg p.o. daily. 5. Aspirin 81 mg p.o. daily. LABORATORY DATA: WBC 6.11. Hemoglobin 9.7, hematocrit 30.6, and platelets 280. Sodium 140, potassium 4.5, chloride 109, CO2 22, BUN 27, and creatinine 1.38. TELEMETRY: Normal sinus rhythm. ASSESSMENT: 1. Acute kidney injury, improving. 2. Chronic diastolic heart failure. 3. Chest pain. 4. Coronary artery disease with history of RCA on PCI in 2016. 5. Morbid obesity. 6. Obstructive sleep apnea. 7. Hypertension. 8. Hyperlipidemia. 9. Diabetes mellitus. PLAN: Continue to hold diuretics, ARB, spironolactone, and metformin at this time. Encouraged p.o. fluid intake. Monitor volume status closely. Continue current cardiac medications including dual antiplatelet therapy. Continue metoprolol and ranolazine for antianginal therapies. Plan to refer the patient to cardiac rehab as an outpatient. Further titrate ranolazine on followup. Thank you for this consult. We will continue to follow. Mitzy Ramirez MD ABS/MODL /[id number]
[2018-10-24 12:43] LABS: EOSINOPHIL SMEAR,URINE NONE SEEN (NONE SEEN)
[2018-10-28 13:10] LABS: ALPHA 2 GLOBULIN URINE PEP 14.5 % (.)
== END 2018-10-23 09:51 | disposition home or self-care (01) ==
LOC: ER 18:36 → ERHOLD 22:07 → MED/SURG 22:28
PROVIDERS: ADMIT Internal Medicine; ATTEND Internal Medicine
DX: N17.0 Acute kidney failure with tubular necrosis (principal); I11.0 Hypertensive heart disease with heart failure; E11.9 Type 2 diabetes mellitus without complications; E66.01 Morbid (severe) obesity due to excess calories; Z68.42 Body mass index [BMI] 45.0-49.9, adult; G47.33 Obstructive sleep apnea (adult) (pediatric); I25.119 Atherosclerotic heart disease of native coronary artery with unspecified angina pectoris; T50.1X5A Adverse effect of loop [high-ceiling] diuretics, initial encounter; I50.32 Chronic diastolic (congestive) heart failure
CPT/HCPCS: 36415 ×4; 71045; 76770; 80048; 80053 ×3; 80061; 81015; 82550 ×2; 82553 ×2; 82570; 82948 ×3; 83880; 84156; 84166; 84300; 84484 ×2; 85025 ×4; 93005; 93306; 99284; G0378 ×4; J1817; J7030 ×4; S0164 ×2

== ENCOUNTER 2019-06-22 06:57 | Inpatient (IN) | payer MEDICARE, BC ==
[2019-06-18 13:59] LABS: BASOPHILS % 0.7 % (0.0-1.0); EOSINOPHILS # (AUTO) 0.2 (0.0-0.4); HEMATOCRIT 35.7 % (34.2-44.1); HEMOGLOBIN 11.8 g/dL (12.0-16.0); LYMPHOCYTES # (AUTO) 1.4 (1.0-3.2); MEAN CORPUSCULAR HEMOGLOBIN 29.4 pg (28-32); MEAN CORPUSCULAR HGB CONC 33.1 g/dL (31-35); MONOCYTES # (AUTO) 0.5 (0.2-0.8); MONOCYTES % 9.8 % (4.4-11.3); NEUTROPHILS # (AUTO) 3.3 (2.1-6.9); NEUTROPHILS % 61.1 % (38.7-80.0); PLATELET COUNT 273 x10e3/uL (140-360); RED BLOOD COUNT 4.01 x10e6/uL (3.6-5.1); RED CELL DISTRIBUTION WIDTH 13.3 % (11.7-14.4)
[2019-06-18 14:17] LABS: ANION GAP 13.2 mmol/L (8-16); CALCIUM 10.5 mg/dL (8.4-10.2); CREATININE, SERUM 0.99 mg/dL (0.57-1.11); POTASSIUM 4.2 mmol/L (3.5-5.1)
--- NOTE | 2019-06-18 14:18 | Diagnostic Imaging Report ---
EXAMINATION: CHEST 2 VIEWS INDICATION: ^PREOP ^[id number] ^1400 COMPARISON: Chest radiograph 05/29/2018 FINDINGS: PA and lateral views TUBES and LINES: None. LUNGS: Lungs are well inflated. Lungs are clear. There is no evidence of pneumonia or pulmonary edema. PLEURA: No pleural effusion or pneumothorax. HEART AND MEDIASTINUM: The cardiomediastinal silhouette is unremarkable. BONES AND SOFT TISSUES: No acute osseous lesion. Soft tissues are unremarkable. UPPER ABDOMEN: No free air under the diaphragm. IMPRESSION: No acute thoracic radiographic abnormality. Signed by: Feliberto Gómez MD on 06/18/2019 2:16 PM
[~2019-06-22] VITALS: Ht 170.2 cm; Wt 136.5 kg
[~2019-06-22 06:57] MED LIST changes: +ASPIRIN EC81 MG PO; +BUMETANIDE1 MG PO; +CLONIDINE HCL0.1 MG PO; +ESOMEPRAZOLE MA40 MG PO; +ISOSORBIDE MONO20 MG PO; +LEVOCETIRIZINE D5 MG PO; +LORAZEPAM1 MG PO; +RANEXA500 MG PO; +SPIRONOLACTONE25 MG PO
[2019-06-22] MEDS ORDERED: ACETAMINOPHEN 1000 MG/100 ML 100 ML IV ONE (07:00)
[2019-06-22] MEDS ORDERED: SCOPOLAMINE 1.5 MG PATCH ONE (07:01)
[2019-06-22] MEDS ORDERED: SUGAMMADEX SODIUM 200 MG/2 ML VIAL IV ONE (07:01)
[2019-06-22] MEDS ORDERED: LIDOCAINE HCL (LTA) 4 ML SOLN ONE (07:01)
[2019-06-22] MEDS ORDERED: CEFAZOLIN SOD 1 GM/NS 50ML 100 ML IV ONE (07:59)
[2019-06-22] MEDS ORDERED: SCOPOLAMINE 1.5 MG PATCH TOP SCH (09:00)
[2019-06-22] MEDS ORDERED: FENTANYL CITRATE/PF 100MCG/2 ML INJ ONE ×2 (11:53→14:02)
[2019-06-22] MEDS ORDERED: PROMETHAZINE HCL (IM) 25 MG/ML VIAL ONE (11:54)
[2019-06-22] MEDS ORDERED: MORPHINE SULFATE INJ 10 MG/ML ONE ×2 (12:44→14:42)
[2019-06-22] MEDS ORDERED: MIDAZOLAM HCL 2 MG/2 ML VIAL ONE (14:02)
--- NOTE | 2019-06-22 15:27 | Operative Report ---
DATE OF PROCEDURE: 06/22/2019 SURGEON: Sreedhar Starks MD PREOPERATIVE DIAGNOSES: 1. Morbid obesity, BMI 51. 2. Coronary artery disease, status post stents placed in the past. 3. Congestive heart failure. 4. Type 2 diabetes mellitus. 5. Hypertension. 6. Obstructive sleep apnea. POSTOPERATIVE DIAGNOSES: 1. Morbid obesity, BMI 51. 2. Coronary artery disease, status post stents placed in the past. 3. Congestive heart failure. 4. Type 2 diabetes mellitus. 5. Hypertension. 6. Obstructive sleep apnea. PREOPERATIVE INDICATION: Treat disease, prevent complications related to comorbid conditions of obesity. PROCEDURES: 1. Laparoscopic vertical sleeve gastrectomy. 2. Laparoscopic hiatal hernia repair. ANESTHESIA: General. MEMBER SERVICES COORDINATOR: Ilya Guardado, surgical 1st observation assistant (needed due to complexity of case). FLUIDS: 700 mL of crystalloid. ESTIMATED BLOOD LOSS: 30 mL. DRAINS: None. COMPLICATIONS: None. SPECIMENS: Partial stomach. GRAFTS: None. FINDINGS: 1. Small hiatal hernia. 2. Negative intraoperative leak test. PROCEDURE IN DETAIL: The patient was brought to the operating room and was intubated under general endotracheal anesthesia. She was sterilely prepped and draped in the usual fashion. A preprocedure pause was performed identifying the patient, use of perioperative antibiotics, intended procedure, and staff surgeon. Access was gained via a 5 mm left subcostal incision using a Veress needle. The abdomen was insufflated. Four additional trocars were placed in standard positions. A liver retractor was used to expose the stomach and noted hiatal hernia. I incised the gastrohepatic ligament via the pars flaccida technique and dissected out a hiatal hernia between the right and left shanelle of the diaphragm. I then repaired the crura with 2-0 Surgidac suture in interrupted fashion. Next, I mobilized the greater curvature of stomach from about 4 cm proximal to the pyloric valve to the left shanelle of the diaphragm using the [place] LigaSure device. A 32-Telugu bougie was placed along the lesser curvature of stomach. The greater curvature of stomach was resected with 6 firings of a 60 mm purple load Covidien stapling device, which was reinforced with TRS. We then submerged the sleeve under saline and did a leak test through the 32-Telugu bougie. No leaks were identified. We then removed the specimen through the right periumbilical port site. The port site was closed with 0 Vicryl suture using a Jh Engle technique in a [id number] fashion. We then verified hemostasis and removed the liver retractor and desufflated the abdomen. The trocars were removed. Incision sites were closed with 4-0 Monocryl suture in a subcuticular fashion. Dermabond dressings were applied. A 0.25% bupivacaine was used at both the preperitoneal incision sites. The patient tolerated the procedure well. Type of wound was type 2, clean, contaminated. All surgical sponge and instrument counts were correct. MD BRIDGETTE Renteria/ALETHA /[id number]
--- NOTE | 2019-06-22 16:02 | History and Physical ---
CHIEF COMPLAINT: "I had weight loss surgery." HISTORY OF PRESENT ILLNESS: This is a 64-year-old white woman, who presents to [facility] with diagnosis of extreme obesity, BMI 49, complicating underlying hypertension, coronary artery disease, and type 2 diabetes mellitus. The patient underwent successful laparoscopic vertical sleeve gastrectomy today as well as hiatal hernia repair. The bariatric surgeon was Dr. Sreedhar Starks. The patient has required several injections of intravenous morphine in the postanesthesia care unit. The patient states that finally her pain is controlled at this time. Denies any nausea or vomiting. The patient denies any chest pain, shortness of breath, or cough. REVIEW OF SYSTEMS: GENERAL: Weight has been stable. No fever or chills. HEENT: No headaches. No visual changes. CARDIOVASCULAR/RESPIRATORY: No chest pain. No shortness of breath or cough, but she does have a history of coronary artery disease as well as congestive heart failure. GI: Complains of abdominal pain, but it seems to be controlled with intravenous morphine. Denies any nausea or vomiting. No flatus or belching. : Jackson catheter is removed. NEUROMUSCULAR: No limb weakness or numbness, but she does have chronic lower back pain. ALLERGIES: 1. FLU VACCINE. 2. LEVOFLOXACIN. 3. RANEXA. HOME MEDICATIONS: 1. Aspirin 81 mg daily. 2. BuSpar 15 mg t.i.d. 3. Clonidine 0.1 mg once daily as needed for elevated blood pressure. 4. Clopidogrel 75 mg daily. 5. Cyclobenzaprine 10 mg t.i.d. p.r.n. back spasms. 6. Duloxetine 60 mg daily. 7. Nexium 40 mg daily. 8. Furosemide 40 mg daily. 9. Isosorbide mononitrate 30 mg b.i.d. 10. Lorazepam 1 mg b.i.d. p.r.n. anxiety. 11. Metoprolol succinate 100 mg daily. 12. Olmesartan 40 mg at bedtime. 13. Rosuvastatin 40 mg daily. PAST MEDICAL HISTORY: 1. Extreme obesity, BMI 49. 2. Chronic diastolic congestive heart failure. 3. Coronary artery disease. 4. Obstructive sleep apnea. 5. Stage 2 chronic kidney disease. 6. Type 2 diabetes mellitus. 7. Lumbar disk disease. 8. Cervical disk disease. 9. Bilateral knee degenerative joint disease. 10. GERD. 11. Hyperlipidemia. 12. Major depressive disorder. 13. History of secondhand tobacco exposure. 14. Chronic bronchitis. 15. Coronary artery disease (RCA and OM stent placement in March 2016). FAMILY HISTORY: Grandmother had diabetes mellitus. Both parents had coronary artery disease. SOCIAL HISTORY: This woman is , lives with her . She has no history of tobacco use. She was exposed to secondhand tobacco smoke for many years. The patient drinks alcohol rarely in the form of red wine. PAST SURGICAL HISTORY: 1. Coronary artery stent placement in OM and RCA in March 2016. 2. Lumbar epidural steroid injections multiple times. 3. Cervical spine epidural steroid injections multiple times. 4. Lumbar spine surgery in 2009. 5. History of multiple left heart catheterizations, but she did undergo percutaneous coronary intervention as previous stated in March 2016. PHYSICAL EXAMINATION: GENERAL: She is somnolent, but arousable. She is fully oriented once she becomes fully awake. She is cooperative with my exam. She does not appear to be in any respiratory distress. VITAL SIGNS: Height 5 feet 6 inches, weight is 305 pounds, BMI 49. The patient's blood pressure is 158/80, pulse 66, respiratory rate 16, oxygen is 95% on 2 L oxygen, temperature is 98.6. INTEGUMENT: Skin is warm and dry. No pallor, jaundice, or diaphoresis. HEENT: Anicteric sclerae. Moist mucous membranes. NECK: Supple. Difficult to assess for jugular venous distention because of the patient's body habitus. CARDIOVASCULAR: Distant heart sounds. Regular rate and rhythm. LUNGS: No rales, no rhonchi. ABDOMEN: Obese. No bowel sounds are auscultated. The laparoscopic trocar sites are all clean, dry, and intact. EXTREMITIES: No edema or deformity. She is currently wearing sequential compression devices in her bilateral legs. NEUROLOGIC: Intact. No gross deficits appreciated. DIAGNOSES: 1. Extreme obesity, BMI 49, complicating underlying hypertension, type 2 diabetes mellitus, sleep apnea, and congestive heart failure. 2. Status post laparoscopic sleeve gastrectomy. 3. Coronary artery disease. 4. Type 2 diabetes mellitus. 5. Chronic diastolic congestive heart failure. 6. Hypertensive heart disease. 7. Obstructive sleep apnea. PLAN: 1. Pain control. 2. Encourage incentive spirometer use to prevent atelectasis. 3. Mobilize patient. 4. Blood glucose control. 5. Start enoxaparin to prevent atelectasis. 6. CPAP usage at night. I like to thank Dr. Starks for involving me in the care of this patient. I spent 45 minutes in care of the patient. MD SOLITARIO Lui/ALETHA /[id number]
[2019-06-22] MEDS ORDERED: ROCURONIUM BROMIDE 10 MG/ML 5ML VIAL ONE (18:05)
[2019-06-22] MEDS ORDERED: ONDANSETRON HCL INJ 2MG/ML 2ML 2 MG/ML VIAL ONE (18:05)
[2019-06-22] MEDS ORDERED: SEVOFLURANE INHAL SOLN 250 ML PEN BTL ONE (18:05)
[2019-06-22] MEDS ORDERED: PROPOFOL IV EMULSION 10 MG/ML 20 ML VIAL ONE (18:05)
[2019-06-22] MEDS ORDERED: LIDOCAINE HCL 2% LOCAL INJ 5 ML SDV VIAL INJ ONE (18:05)
[2019-06-22] MEDS ORDERED: EPHEDRINE SULFATE INJ 50 MG/ML VIAL ONE (18:05)
[2019-06-22] MEDS ORDERED: DEXAMETHASONE SOD PHOS INJ 4 MG/ML VIAL ONE (18:05)
[2019-06-22] MEDS ORDERED: MORPHINE SULFATE 2 MG/ML SYR 1ML ONE (18:13)
--- NOTE | 2019-06-22 19:25 | NUR ---
Received bedside report from day nurse. Patient awake and resting in bed, no s/s of distress at this time. All safety measures in place. Family at bedside. Will continue to monitor.
[2019-06-22 20:00] VITALS: BP 137/71
[2019-06-22 20:18] VITALS: BP 137/71
[2019-06-22] MEDS: LACTATED RINGER'S 1,000 ML IV SCH (20:18)
[2019-06-22] MEDS: ENOXAPARIN SOD INJ 40 MG/0.4 ML SYR SC SCH (20:18)
[2019-06-22] MEDS: MORPHINE SULFATE 2 MG/ML SYR 1ML IV PRN ×2 (20:19→22:13)
[2019-06-22] MEDS ORDERED: DULOXETINE HCL60 MG PO (20:48)
[2019-06-22] MEDS ORDERED: METOPROLOL SUC200 MG PO (20:48)
[2019-06-22] MEDS ORDERED: PANTOPRAZOLE SO40 MG PO (20:48)
[2019-06-22] MEDS ORDERED: BUSPIRONE HCL15 MG PO (20:48)
--- NOTE | 2019-06-22 21:03 | NUR ---
Medication reconciliation completed.
[2019-06-22 21:51] VITALS: BP 137/71
[2019-06-23] VITALS (8 sets, daily range): BP systolic 107–161; BP diastolic 51–84
[2019-06-23] MEDS: MORPHINE SULFATE 2 MG/ML SYR 1ML IV PRN ×3 (00:16→21:56)
[2019-06-23] MEDS: ONDANSETRON HCL INJ 2MG/ML 2ML 2 MG/ML VIAL IV PRN ×4 (03:26→20:15)
[2019-06-23] MEDS: LACTATED RINGER'S 1,000 ML IV SCH (04:19)
[2019-06-23 06:18] LABS: BASOPHILS % 0.1 % (0.0-1.0); HEMATOCRIT 35.6 % (34.2-44.1); HEMOGLOBIN 11.3 g/dL (12.0-16.0); LYMPHOCYTES % 10.1 % (18.0-39.1); MEAN CORPUSCULAR HGB CONC 31.7 g/dL (31-35); MEAN CORPUSCULAR VOLUME 91.5 fL (81-99); MONOCYTES # (AUTO) 0.7 (0.2-0.8); MONOCYTES % 7.2 % (4.4-11.3); NEUTROPHILS # (AUTO) 8.5 (2.1-6.9); NEUTROPHILS % 81.8 % (38.7-80.0); PLATELET COUNT 265 x10e3/uL (140-360); RED BLOOD COUNT 3.89 x10e6/uL (3.6-5.1); RED CELL DISTRIBUTION WIDTH 13.9 % (11.7-14.4)
[2019-06-23 06:46] LABS: ALBUMIN 3.9 g/dL (3.5-5.0); ALBUMIN/GLOBULIN RATIO 1.3 (0.8-2.0); ANION GAP 12.4 mmol/L (8-16); CALCIUM 9.8 mg/dL (8.4-10.2); CREATININE, SERUM 1.01 mg/dL (0.57-1.11); MAGNESIUM 2.1 MG/DL (1.3-2.1); PHOSPHORUS 2.6 MG/DL (2.3-4.7); POTASSIUM 5.4 mmol/L (3.5-5.1)
--- NOTE | 2019-06-23 07:00 | NUR ---
bedside shift report received, pt sitting in chair no ss of distress noted, denies pain at this time, ivf infusing to r hand 20g no ss of infiltration noted, no other co vocied call light in reach will continue to monitor
--- NOTE | 2019-06-23 07:01 | NUR ---
Bedside report given to day nurse. Patient awake and sitting in chair, no s/s of distress at this time. All safety measures in place. Family at bedside.
--- NOTE | 2019-06-23 08:15 | NUR ---
PROGRESS NOTE S: No major complaints, has ambulated O: af, vss General- no acute distress Abdomen- soft, incisions c/d/i A/P: POD 1, s/p lap sleeve gastrectomy with hiatal hernia repair -Clears, ambulate, IS, OOB to chair -stop evening lovenox and start plavix/aspirin -d/c per Dr. Carranza (probably tomorrow) -f/u and diet instructions given to patient
[2019-06-23] MEDS: ENOXAPARIN SOD INJ 40 MG/0.4 ML SYR SC SCH (09:30)
[2019-06-23] MEDS: SODIUM CHLORIDE 0.9% 1000ML 1,000 ML IV SCH ×2 (09:30→19:19)
[2019-06-23] MEDS ORDERED: LORAZEPAM 1 MG TAB PO PRN (09:45)
[2019-06-23] MEDS ORDERED: DEXTROSE 50% SYRINGE 50 ML IV PRN (10:00)
--- NOTE | 2019-06-23 10:20 | Progress Note ---
DATE: 06/23/2019 CHIEF COMPLAINT/HISTORY OF PRESENT ILLNESS: This is a 64-year-old white woman, who was initially admitted to [facility] with diagnosis of extreme obesity, BMI of 47, this complicating underlying congestive heart failure, hypertension, and sleep apnea. On admission, the patient underwent successful laparoscopic sleeve gastrectomy as well as hiatal hernia repair. The patient tolerated surgery well. The patient states today she is having episodes of nausea and some vomiting after drinking clear liquids. She also states that she is experiencing some abdominal cramping. Blood work today was unremarkable. The patient's white blood cell count is 10,300 with 81% segmented neutrophils. Potassium is slightly elevated with level of 5.4. The patient is receiving lactated Ringer's. REVIEW OF SYSTEMS: As per HPI. PHYSICAL EXAMINATION: GENERAL: She is awake. She is alert. She is fully oriented. Her is at bedside. VITAL SIGNS: Blood pressure 140/68, pulse 70, respiratory rate 18, temperature 97.8, and oxygen saturation 96% on room air. BMI is 47. INTEGUMENT: Skin is warm and dry. No pallor, jaundice, or diaphoresis. HEENT: Anicteric sclerae. Moist mucous membranes. NECK: Supple. CARDIOVASCULAR: Distant heart sounds. Regular rate and rhythm. LUNGS: No rales. No rhonchi. No wheezes. ABDOMEN: Obese. No bowel sounds are auscultated. The trocar incision sites are clean, dry, and intact. EXTREMITIES: No edema or deformity. NEUROLOGIC: Intact. DIAGNOSES: 1. Status post laparoscopic sleeve gastrectomy. 2. Status post hiatal hernia repair. 3. Extreme obesity, BMI of 47, complicating underlying congestive heart failure, hypertension, and sleep apnea. 4. Chronic diastolic congestive heart failure. 5. Coronary artery disease. 6. Hyperkalemia. PLAN: 1. Restart clopidogrel and aspirin tonight. 2. Stop enoxaparin. 3. Mobilize patient. 4. Encourage incentive spirometer usage to prevent atelectasis. 5. We will discontinue lactated Ringer's as patient is experiencing mild hyperkalemia. 6. We will start intravenous saline. I spent 35 minutes in the care of patient. MD SOLITARIO Lui/ALETHA /[id number] MTDAnais
[2019-06-23] MEDS: HYDROCODONE/APAP 7.5MG-325MG 1 EA TAB PO PRN ×2 (10:29→19:24)
--- NOTE | 2019-06-23 17:25 | NUR ---
RD received consult for bariatric diet education. BARIATRIC DIET Learner(s): pt Barriers: none Cultural/Language Modifications: No cultural/language modifications noted. Pt speaks Georgian. Readiness: acceptance Method: explanation/ discussion, handout Topics: Bariatric diet (clear liquid, full liquid, pureed) Understanding/Compliance: good compliance expected, needs reinforcement at outpatient bariatric clinic, all questions have been answered
--- NOTE | 2019-06-23 17:27 | NUR ---
Discontinuing PT services since patient is mod I in functional mobility. Thank you. Addendum: 06/23/19 at 1728 by Nitesh vaughan PT Amended: Links added.
[2019-06-23] MEDS: ISOSORBIDE MONONITRATE 20 MG TAB PO SCH (17:34)
--- NOTE | 2019-06-23 19:00 | NUR ---
RECEIVED REPORT FROM PREVIOUS NURSE. CALL LIGHT WITHIN REACH. PATIENT IN BED AND FAMILY AT THE BEDSIDE. PATIENT WAS TOLD SHE NEEDS TO WALK TONIGHT AND NOT JUST STAY IN BED. Addendum: 06/24/19 at 0446 by Jess Ortega RN RECEIVED BEDSIDE SHIFT REPORT
--- NOTE | 2019-06-23 19:50 | NUR ---
PATIENT COMPLAINING OF PAIN IN HER ABDOMEN AND CHEST AND THINKS IT MIGHT BE ACID REFLUX. PATIENT ASKING FOR SOMETHING FOR HER PAIN AND NAUSEA. CALLED AND TALKED TO DR. MITTAL ABOUT THE PATIENT CONCERN. DR. MITTAL ORDERED PROTONIX 40 NOW AND PO DAILY AT 0600 AND TO CHANGE THE ZOFRAN TO Q4
[2019-06-23] MEDS: METOPROLOL SUCCINATE 50 MG TAB XL PO SCH (20:15)
[2019-06-23] MEDS: BUSPIRONE HCL 5 MG TAB PO SCH (20:20)
[2019-06-23] MEDS ORDERED: PANTOPRAZOLE 40 MG 10ML VIAL IV NR (20:30)
[2019-06-23] MEDS ORDERED: SIMVASTATIN 20 MG TAB PO SCH (21:00)
[2019-06-23] MEDS ORDERED: ASPIRIN 81 MG ENTERIC COATED PO SCH (21:00)
[2019-06-23] MEDS ORDERED: OLMESARTAN 20 MG TAB PO SCH (21:00)
[2019-06-23] MEDS ORDERED: CLOPIDOGREL BISULFATE 75 MG TAB PO SCH (21:00)
[2019-06-24] VITALS: BP 105/52
--- NOTE | 2019-06-24 00:42 | NUR ---
PATIENT WAS COMPLAINING OF PAIN IN CHEST AND ABDOMEN. PATIENT WAS TOLD TO WALK AROUND THE ROOM OR HALLWAY. PATIENT FINALLY WITH ASSISTANCE GOT UP OUT OF BED AND IS NOW WALKING AROUND THE HALLWAY.
[2019-06-24] MEDS: ONDANSETRON HCL INJ 2MG/ML 2ML 2 MG/ML VIAL IV PRN (01:58)
[2019-06-24] MEDS: MORPHINE SULFATE 2 MG/ML SYR 1ML IV PRN (01:58)
[2019-06-24 04:00] VITALS: BP 139/70
[2019-06-24] MEDS: HYDROCODONE/APAP 7.5MG-325MG 1 EA TAB PO PRN ×2 (05:37→13:44)
[2019-06-24] MEDS ORDERED: PANTOPRAZOLE SOD 40 MG TABEC PO SCH ×2 (06:00→09:00)
[2019-06-24 06:19] LABS: BASOPHILS % 0.2 % (0.0-1.0); EOSINOPHILS % 0.1 % (0.0-6.0); HEMATOCRIT 34.3 % (34.2-44.1); HEMOGLOBIN 10.7 g/dL (12.0-16.0); LYMPHOCYTES # (AUTO) 1.1 (1.0-3.2); LYMPHOCYTES % 13.3 % (18.0-39.1); MEAN CORPUSCULAR HEMOGLOBIN 29.1 pg (28-32); MEAN CORPUSCULAR HGB CONC 31.2 g/dL (31-35); MEAN CORPUSCULAR VOLUME 93.2 fL (81-99); MONOCYTES # (AUTO) 0.7 (0.2-0.8); MONOCYTES % 8.3 % (4.4-11.3); NEUTROPHILS # (AUTO) 6.3 (2.1-6.9); NEUTROPHILS % 77.2 % (38.7-80.0); PLATELET COUNT 228 x10e3/uL (140-360); RED BLOOD COUNT 3.68 x10e6/uL (3.6-5.1)
[2019-06-24 06:27] LABS: ALANINE AMINOTRANSFERASE 21 IU/L (0-55); ALBUMIN 3.9 g/dL (3.5-5.0); ALBUMIN/GLOBULIN RATIO 1.2 (0.8-2.0); ALKALINE PHOSPHATASE 81 IU/L (40-150); ANION GAP 11.4 mmol/L (8-16); BLOOD UREA NITROGEN 15 mg/dL (7-26); BUN/CREATININE RATIO 17 (6-25); CALCIUM 9.6 mg/dL (8.4-10.2); CARBON DIOXIDE 24 mmol/L (22-29); CHLORIDE 108 mmol/L (98-107); EST GLOMERULAR FILTRATION RATE > 60 ML/MIN (60-); GLUCOSE 100 mg/dL (74-118); POTASSIUM 4.4 mmol/L (3.5-5.1); SODIUM 139 mmol/L (136-145)
--- NOTE | 2019-06-24 07:00 | NUR ---
bedside rounds complete, pt sitting on side of bed, no distress noted, updated on poc voiced understanding, ivf infusing to r hand 20g no ss of infiltration noted, denies pain at this time, call light in reach will continue to monitor
--- NOTE | 2019-06-24 07:12 | NUR ---
GAVE BEDSIDE SHIFT REPORT TO ONCOMING NURSE. CALL LIGHT WITHIN REACH. PATIENT SITTING AT THE CORNER OF THE BED. AT THE BEDSIDE.
[2019-06-24 07:33] VITALS: BP 139/68
[2019-06-24 07:55] VITALS: BP 139/68
[2019-06-24] MEDS: BUSPIRONE HCL 5 MG TAB PO SCH (07:57)
[2019-06-24] MEDS: METOPROLOL SUCCINATE 50 MG TAB XL PO SCH (07:58)
[2019-06-24] MEDS: ISOSORBIDE MONONITRATE 20 MG TAB PO SCH (07:58)
[2019-06-24] MEDS ORDERED: FUROSEMIDE 40 MG TAB PO SCH (09:00)
[2019-06-24] MEDS ORDERED: PROMETHAZINE 12.5MG/ NACL 0.9% 12.5 MG/50 ML BAG IV PRN (09:00)
[2019-06-24] MEDS ORDERED: DULOXETINE HCL 30 MG DELAYED RELEASE PO SCH (09:00)
--- NOTE | 2019-06-24 10:00 | Discharge Summary ---
ADMIT DIAGNOSES: 1. Extreme obesity, BMI of 49, complicating underlying hypertension, type 2 diabetes mellitus, sleep apnea, and congestive heart failure. 2. Type 2 diabetes mellitus. 3. Hypertensive heart disease. 4. Obstructive sleep apnea. 5. Chronic diastolic congestive heart failure. 6. Coronary artery disease. DISCHARGE DIAGNOSIS: 1. Status post laparoscopic sleeve gastrectomy and hiatal hernia repair. 2. Extreme obesity, BMI of 49, complicated underlying hypertension, type 2 diabetes mellitus, sleep apnea, and congestive heart failure. 3. Coronary artery disease. 4. Type 2 diabetes mellitus. 5. Chronic diastolic congestive heart failure. 6. Hypertensive heart disease. 7. Obstructive sleep apnea. HOSPITAL COURSE: This is a 64-year-old white woman, who was initially admitted to [facility], diagnosed with extreme obesity, BMI of 49 that was complicating underlying hypertension, type 2 diabetes mellitus, sleep apnea, and congestive heart failure. During this hospitalization, the patient underwent successful laparoscopic vertical sleeve gastrectomy and hiatal hernia repair. This surgery was performed by Dr. Sreedhar Starks. The patient's hospitalization was extended by one day because of her persistent nausea and vomiting. The patient responded minimally to intravenous ondansetron in regard to her nausea. However, she did stop vomiting once intravenous promethazine was implemented on as needed basis. On discharge, she was tolerating a clear liquid diet. Her condition on discharge was stable. DISCHARGE MEDICATIONS: 1. Tylenol No. 3 one pill every 4 hours p.r.n. pain, 30 prescribed, no refills. 2. Zofran 4 mg one pill every 6 hours p.r.n. mild nausea, 20 prescribed, no refills. 3. Phenergan 25 mg one pill every 4 hours p.r.n. severe nausea and vomiting, 12 prescribed, one refill. 4. Aspirin 81 mg daily. 5. BuSpar 50 mg t.i.d. 6. Clonidine 0.1 mg once daily as needed for elevated blood pressure. 7. Clopidogrel 75 mg daily. 8. Cyclobenzaprine 10 mg t.i.d. p.r.n. pain. 9. Duloxetine 60 mg daily. 10. Nexium 40 mg daily. 11. Furosemide 40 mg daily. 12. Isosorbide mononitrate 30 mg b.i.d. 13. Lorazepam 1 mg b.i.d. p.r.n. anxiety. 14. Metoprolol succinate 100 mg daily. 15. Olmesartan 40 mg at bedtime. 16. Rosuvastatin 40 mg at bedtime. FOLLOWUP INSTRUCTIONS: The patient instructed to follow up with her primary care physician namely myself, Dr. Ammon Carranza within 1-week and with Dr. Sreedhar Starks within two weeks. MD LANEY LuiO/MODL /[id number] cc: Sreedhar Starks MD
[2019-06-24 12:10] VITALS: BP 134/65
[2019-06-24] MEDS ORDERED: TYLENOL WITH C1 EACH PO ×2 (13:47→13:49)
[2019-06-24] MEDS ORDERED: ZOFRAN4 MG PO (13:50)
[2019-06-24] MEDS ORDERED: PROMETHAZINE HC25 M1 PO (13:52)
== END 2019-06-24 14:48 | disposition home or self-care (01) | DRG 620 ==
LOC: OR 06:57 → PACU V 13:08 → MED/SURG 18:48
PROVIDERS: ADMIT Internal Medicine; ATTEND Internal Medicine
PROC: 0BQT4ZZ Repair Diaphragm, Percutaneous Endoscopic Approach (ICD-10-PCS; 2019-06-22)
PROC: 0DB64Z3 Excision of Stomach, Percutaneous Endoscopic Approach, Vertical (ICD-10-PCS; principal; 2019-06-22 10:00)
DX: E66.01 Morbid (severe) obesity due to excess calories (principal); I50.32 Chronic diastolic (congestive) heart failure; I13.0 Hypertensive heart and chronic kidney disease with heart failure and stage 1 through stage 4 chronic kidney disease, or unspecified chronic kidney disease; Z68.42 Body mass index [BMI] 45.0-49.9, adult; K44.9 Diaphragmatic hernia without obstruction or gangrene; G47.33 Obstructive sleep apnea (adult) (pediatric); I25.10 Atherosclerotic heart disease of native coronary artery without angina pectoris; Z88.1 Allergy status to other antibiotic agents; Z88.7 Allergy status to serum and vaccine; N18.2 Chronic kidney disease, stage 2 (mild); E11.22 Type 2 diabetes mellitus with diabetic chronic kidney disease; M17.0 Bilateral primary osteoarthritis of knee; K21.9 Gastro-esophageal reflux disease without esophagitis; E78.5 Hyperlipidemia, unspecified; Z95.5 Presence of coronary angioplasty implant and graft; Z83.3 Family history of diabetes mellitus; Z82.49 Family history of ischemic heart disease and other diseases of the circulatory system; E87.5 Hyperkalemia
CPT/HCPCS: 36415; 71046; 80048; 80053; 82948; 83735; 84100; 85025; 93005; J0690; J1100; J1650; J2001; J2250; J2270; J2405; J2550; J3010; J7030; J7121

== ENCOUNTER 2020-01-23 03:53 | Emergency (ER) | payer MEDICARE, BC ==
[~2020-01-23] VITALS: Ht 167.6 cm; Wt 119.7 kg
[~2020-01-23 03:53] MED LIST changes: +BUSPIRONE HCL15 MG PO; +DULOXETINE HCL60 MG PO; +METOPROLOL SUC200 MG PO; +PANTOPRAZOLE SO40 MG PO; +PROMETHAZINE HC25 M1 PO; +TYLENOL WITH C1 EACH PO; +ZOFRAN4 MG PO
[2020-01-23 05:46] VITALS: BP 114/60
== END 2020-01-23 06:00 | disposition home or self-care (01) ==
LOC: ER 04:01
DX: S06.0X0A Concussion without loss of consciousness, initial encounter (principal); W06.XXXA Fall from bed, initial encounter; W18.09XA Striking against other object with subsequent fall, initial encounter; Y93.84 Activity, sleeping; Y92.003 Bedroom of unspecified non-institutional (private) residence as the place of occurrence of the external cause; I10 Essential (primary) hypertension; E11.9 Type 2 diabetes mellitus without complications; E78.5 Hyperlipidemia, unspecified; K21.9 Gastro-esophageal reflux disease without esophagitis; G47.33 Obstructive sleep apnea (adult) (pediatric); Z79.01 Long term (current) use of anticoagulants; Z95.5 Presence of coronary angioplasty implant and graft
CPT/HCPCS: 70450; 72125; 99283

== ENCOUNTER → 2020-10-20 | Day surgery (SDC) | payer MEDICARE, BC ==
[2020-10-18 10:27] LABS: BASOPHILS # (AUTO) 0.1 (0.0-0.1); EOSINOPHILS # (AUTO) 0.3 (0.0-0.4); HEMATOCRIT 35.1 % (34.2-44.1); HEMOGLOBIN 11.4 g/dL (12.0-16.0); LYMPHOCYTES # (AUTO) 1.3 (1.0-3.2); LYMPHOCYTES % 27.6 % (18.0-39.1); MEAN CORPUSCULAR HEMOGLOBIN 29.5 pg (28-32); MEAN CORPUSCULAR HGB CONC 32.5 g/dL (31-35); MEAN CORPUSCULAR VOLUME 90.7 fL (81-99); MONOCYTES # (AUTO) 0.4 (0.2-0.8); MONOCYTES % 8.2 % (4.4-11.3); NEUTROPHILS # (AUTO) 2.8 (2.1-6.9); NEUTROPHILS % 56.8 % (38.7-80.0); PLATELET COUNT 228 x10e3/uL (140-360); RED BLOOD COUNT 3.87 x10e6/uL (3.6-5.1); RED CELL DISTRIBUTION WIDTH 13.1 % (11.7-14.4)
[~2020-10-20] MED LIST changes: +AMLODIPINE BESYL5 MG PO; +ASPIRIN81 MG PO; +CLOPIDOGREL75 MG PO; +FENTANYL CITRATE/PF 100MCG/2 ML INJ ONE; +HYOSCYAMINE SULFATE 0.5 MG/ML INJ ONE; +METOCLOPRAMIDE HCL 10 MG/2ML VIAL ONE; +MIDAZOLAM HCL 2 MG/2 ML VIAL ONE; +POVIDONE IODINE 0.05% 0.05 % ML PO ONE; +PROPOFOL IV EMULSION 10 MG/ML 20 ML VIAL ONE; +SENNA LAXATIVE8.6 MG PO
[2020-10-20 15:31] VITALS: BP 123/73
== END | disposition home or self-care (01) ==
LOC: OR 10:44
PROVIDERS: ATTEND Internal Medicine Gastroenterology
DX: K57.92 Diverticulitis of intestine, part unspecified, without perforation or abscess without bleeding (principal); K20.90 Esophagitis, unspecified without bleeding; K44.9 Diaphragmatic hernia without obstruction or gangrene; K29.70 Gastritis, unspecified, without bleeding; Z98.84 Bariatric surgery status; Z86.010 Personal history of colon polyps; I10 Essential (primary) hypertension; Z68.27 Body mass index [BMI] 27.0-27.9, adult; Z01.810 Encounter for preprocedural cardiovascular examination; Z01.812 Encounter for preprocedural laboratory examination; E66.01 Morbid (severe) obesity due to excess calories; G47.33 Obstructive sleep apnea (adult) (pediatric); I25.10 Atherosclerotic heart disease of native coronary artery without angina pectoris; Z87.442 Personal history of urinary calculi; Z88.1 Allergy status to other antibiotic agents; Z88.7 Allergy status to serum and vaccine; Z88.8 Allergy status to other drugs, medicaments and biological substances; K64.8 Other hemorrhoids
CPT/HCPCS: 36415; 43239; 43450; 45378; 85025; 93005; C9113; J1980; J2250; J2704; J2765; J3010

== ENCOUNTER → 2020-11-03 | Outpatient (CLI) | payer MEDICARE, BC ==
[~2020-11-03] MED LIST changes: -FENTANYL CITRATE/PF 100MCG/2 ML INJ ONE; -HYOSCYAMINE SULFATE 0.5 MG/ML INJ ONE; -METOCLOPRAMIDE HCL 10 MG/2ML VIAL ONE; -MIDAZOLAM HCL 2 MG/2 ML VIAL ONE; -POVIDONE IODINE 0.05% 0.05 % ML PO ONE; -PROPOFOL IV EMULSION 10 MG/ML 20 ML VIAL ONE
== END ==
LOC: RAD 15:07
PROVIDERS: ATTEND Internal Medicine Gastroenterology
DX: G89.29 Other chronic pain (principal); K62.89 Other specified diseases of anus and rectum
CPT/HCPCS: 74018

== ENCOUNTER → 2020-11-23 | Day surgery (SDC) | payer MEDICARE, BC ==
[2020-11-21 14:57] LABS: BASOPHILS % 0.5 % (0.0-1.0); EOSINOPHILS # (AUTO) 0.3 (0.0-0.4); EOSINOPHILS % 4.3 % (0.0-6.0); HEMATOCRIT 39.5 % (34.2-44.1); HEMOGLOBIN 12.5 g/dL (12.0-16.0); LYMPHOCYTES # (AUTO) 1.7 (1.0-3.2); LYMPHOCYTES % 27.2 % (18.0-39.1); MEAN CORPUSCULAR HEMOGLOBIN 28.7 pg (28-32); MEAN CORPUSCULAR HGB CONC 31.6 g/dL (31-35); MEAN CORPUSCULAR VOLUME 90.8 fL (81-99); MONOCYTES # (AUTO) 0.5 (0.2-0.8); MONOCYTES % 8.7 % (4.4-11.3); NEUTROPHILS # (AUTO) 3.6 (2.1-6.9); NEUTROPHILS % 58.8 % (38.7-80.0); PLATELET COUNT 261 x10e3/uL (140-360); RED BLOOD COUNT 4.35 x10e6/uL (3.6-5.1); RED CELL DISTRIBUTION WIDTH 13.2 % (11.7-14.4)
[~2020-11-23] MED LIST changes: +FENTANYL CITRATE/PF 100MCG/2 ML INJ ONE; +GLUCAGON FOR INJ 1 MG VIAL ONE; +HYOSCYAMINE SULFATE 0.5 MG/ML INJ ONE; +LIDOCAINE HCL 2% LOCAL INJ 5 ML SDV VIAL INJ ONE; +MIDAZOLAM HCL 2 MG/2 ML VIAL ONE; +PROPOFOL IV EMULSION 10 MG/ML 20 ML VIAL ONE
[2020-11-23 13:15] VITALS: BP 130/70
== END | disposition home or self-care (01) ==
LOC: OR 07:43
PROVIDERS: ATTEND Internal Medicine Gastroenterology
DX: K62.89 Other specified diseases of anus and rectum (principal); K44.9 Diaphragmatic hernia without obstruction or gangrene; K29.60 Other gastritis without bleeding; K20.90 Esophagitis, unspecified without bleeding; K57.30 Diverticulosis of large intestine without perforation or abscess without bleeding; K64.8 Other hemorrhoids; K59.04 Chronic idiopathic constipation; I10 Essential (primary) hypertension; G47.33 Obstructive sleep apnea (adult) (pediatric); E78.5 Hyperlipidemia, unspecified; F32.9 Major depressive disorder, single episode, unspecified; K25.9 Gastric ulcer, unspecified as acute or chronic, without hemorrhage or perforation; Z86.010 Personal history of colon polyps; Z88.1 Allergy status to other antibiotic agents; Z88.7 Allergy status to serum and vaccine; Z88.8 Allergy status to other drugs, medicaments and biological substances; Z98.84 Bariatric surgery status; I25.10 Atherosclerotic heart disease of native coronary artery without angina pectoris; Z95.5 Presence of coronary angioplasty implant and graft; E66.9 Obesity, unspecified; Z87.442 Personal history of urinary calculi; Z01.812 Encounter for preprocedural laboratory examination; Z20.822 Contact with and (suspected) exposure to COVID-19
CPT/HCPCS: 36415; 45378; 85025; J1610; J1980; J2001; J2250; J2704; J3010; U0002

== ENCOUNTER 2022-01-22 07:31 | Emergency (ER) | payer MEDICARE, BC ==
[~2022-01-22] VITALS: Ht 167.6 cm; Wt 119.7 kg
[~2022-01-22 07:31] MED LIST changes: -FENTANYL CITRATE/PF 100MCG/2 ML INJ ONE; -GLUCAGON FOR INJ 1 MG VIAL ONE; -HYOSCYAMINE SULFATE 0.5 MG/ML INJ ONE; -LIDOCAINE HCL 2% LOCAL INJ 5 ML SDV VIAL INJ ONE; -MIDAZOLAM HCL 2 MG/2 ML VIAL ONE; -PROPOFOL IV EMULSION 10 MG/ML 20 ML VIAL ONE
[2022-01-22] MEDS ORDERED: MUCINEX DM ER1 EACH PO (09:16)
== END 2022-01-22 09:25 | disposition home or self-care (01) ==
LOC: ER 07:58
DX: R05.9 Cough, unspecified (principal); J06.9 Acute upper respiratory infection, unspecified; R50.9 Fever, unspecified
CPT/HCPCS: 71046; 87400; 99283

== ENCOUNTER → 2022-02-15 | Outpatient (CLI) | payer MEDICARE, BC ==
[~2022-02-15] MED LIST changes: +MUCINEX DM ER1 EACH PO
== END ==
LOC: MAMMO 14:00
PROVIDERS: ATTEND Internal Medicine
DX: Z12.31 Encounter for screening mammogram for malignant neoplasm of breast (principal); Z13.820 Encounter for screening for osteoporosis; Z78.0 Asymptomatic menopausal state
CPT/HCPCS: 77067; 77080

== ENCOUNTER 2022-08-30 11:45 | Emergency (ER) | payer MEDICARE, BC, OTHER ==
[~2022-08-30] VITALS: Ht 167.6 cm; Wt 119.7 kg
[2022-08-30] MEDS ORDERED: ONDANSETRON HCL 4 MG ORAL DISINTEGRATING TAB PO ONE (12:45)
[2022-08-30] MEDS ORDERED: HYDROCODONE/APAP 10MG-325MG TAB PO ONE (12:45)
[2022-08-30] MEDS ORDERED: ONDANSETRON ODT4 MG PO ×2 (14:21→14:45)
[2022-08-30 14:51] VITALS: O2SAT 99
== END 2022-08-30 14:55 | disposition home or self-care (01) ==
LOC: ER 12:16
DX: S00.83XA Contusion of other part of head, initial encounter (principal); W06.XXXA Fall from bed, initial encounter; Y93.84 Activity, sleeping; Y92.89 Other specified places as the place of occurrence of the external cause; I10 Essential (primary) hypertension; E11.9 Type 2 diabetes mellitus without complications; I50.9 Heart failure, unspecified; I25.10 Atherosclerotic heart disease of native coronary artery without angina pectoris; E78.5 Hyperlipidemia, unspecified; K21.9 Gastro-esophageal reflux disease without esophagitis; G47.33 Obstructive sleep apnea (adult) (pediatric)
CPT/HCPCS: 70450; 70480; 70486; 72125; 99284; Q0162

== ENCOUNTER 2022-09-11 12:44 | Emergency (ER) | payer MEDICARE, BC ==
[~2022-09-11] VITALS: Ht 167.6 cm; Wt 136.1 kg
[~2022-09-11 12:44] MED LIST changes: +ONDANSETRON ODT4 MG PO
[2022-09-11 13:20] VITALS: O2SAT 100
[2022-09-11] MEDS ORDERED: IBUPROFEN 600 MG TAB PO STA (13:24)
[2022-09-11] MEDS ORDERED: METOCLOPRAMIDE HCL 10 MG/2ML VIAL IV ONE (13:30)
[2022-09-11] MEDS ORDERED: DIPHENHYDRAMINE HCL INJ 50 MG/ML VIAL IV ONE (13:30)
[2022-09-11] MEDS ORDERED: ONDANSETRON HCL INJ 2MG/ML 2ML 2 MG/ML VIAL IV STA (15:26)
[2022-09-11] MEDS ORDERED: SODIUM CHLORIDE 0.9% 1000ML 1,000 ML IV ONE (15:30)
[2022-09-11 17:25] VITALS: BP 141/78; PULSE 69; RESP 18; TEMP 98
== END 2022-09-11 17:28 | disposition home or self-care (01) ==
LOC: ER 12:47
DX: S06.0X0D Concussion without loss of consciousness, subsequent encounter (principal); R51.9 Headache, unspecified; I10 Essential (primary) hypertension; E11.9 Type 2 diabetes mellitus without complications; I50.9 Heart failure, unspecified; I25.10 Atherosclerotic heart disease of native coronary artery without angina pectoris; E78.5 Hyperlipidemia, unspecified; K21.9 Gastro-esophageal reflux disease without esophagitis; D64.9 Anemia, unspecified; Z95.5 Presence of coronary angioplasty implant and graft
CPT/HCPCS: 70450; 70486; 73030; 99284; J1200; J2405; J2765; J7030

== ENCOUNTER → 2024-03-18 | Outpatient (REF) | payer MEDICARE, BC ==
[~2024-03-18] MED LIST changes: +LASIX40 MG PO
== END ==
LOC: RAD 12:30
PROVIDERS: ATTEND Internal Medicine
DX: J40 Bronchitis, not specified as acute or chronic (principal); I50.32 Chronic diastolic (congestive) heart failure
CPT/HCPCS: 71046

== ENCOUNTER → 2024-10-19 | Outpatient (REF) | payer MEDICARE, BC | LOC: RAD 14:51 | PROVIDERS: ATTEND Internal Medicine | DX: J42 Unspecified chronic bronchitis (principal) | CPT/HCPCS: 71046 ==

== ENCOUNTER → 2024-12-09 | Outpatient (REF) | payer MEDICARE, BC ==
[2024-12-09 16:22] LABS: EST GLOMERULAR FILTRATION RATE 58.0 ML/MIN (>=60)
== END ==
LOC: CT 15:20
PROVIDERS: ATTEND Internal Medicine
DX: R05.3 Chronic cough (principal); J45.909 Unspecified asthma, uncomplicated
CPT/HCPCS: 36415; 71260; 82565; 84520